=== PATIENT | male | born 1995 | race Caucasian/White ===

== ENCOUNTER 2017-04-24 02:41 | Emergency (ER) | payer OTHER, MEDICAID ==
[~2017-04-24] VITALS: Ht 180.3 cm; Wt 89.5 kg
[2017-04-24 03:25] VITALS: BP 140/80
== END 2017-04-24 04:08 | disposition left against medical advice (07) ==
LOC: M ED 04:01
DX: J02.9 Acute pharyngitis, unspecified (principal); Z53.29 Procedure and treatment not carried out because of patient's decision for other reasons

== ENCOUNTER 2017-09-22 02:12 | Emergency (ER) | payer MEDICAID, OTHER ==
[~2017-09-22] VITALS: Ht 177.8 cm; Wt 89.5 kg
[2017-09-22 02:32] VITALS: BP 147/73
[2017-09-22] MEDS ORDERED: ACETAMINOPHEN 325 MG TAB As Ordered ONE (04:13)
[2017-09-22] MEDS ORDERED: ACETAMINOPHEN 325 MG TAB PO ONE (04:15)
--- NOTE | 2017-09-22 08:15 | REP ---
Clinical: Trauma. Technique: AP, lateral, bilateral oblique views right wrist . Findings: The carpal bones, surrounding osseous structures, soft tissues, and joint spaces are normal. There is no evidence for acute fracture or dislocation. No subcutaneous emphysema or radiodense foreign body. Impression: Normal right wrist series. No acute fracture or dislocation Signed by Gilson Noonan MD 09/22/2017 08:06 A
== END 2017-09-22 04:40 | disposition home or self-care (01) ==
LOC: M ED 02:12
DX: S63.501A Unspecified sprain of right wrist, initial encounter (principal); X50.9XXA Other and unspecified overexertion or strenuous movements or postures, initial encounter; Y92.018 Other place in single-family (private) house as the place of occurrence of the external cause; Y93.83 Activity, rough housing and horseplay; Y99.8 Other external cause status; F17.210 Nicotine dependence, cigarettes, uncomplicated

== ENCOUNTER 2017-11-03 00:42 | Emergency (ER) | payer OTHER, MEDICAID ==
[2017-11-03] MEDS ORDERED: CLINDAMYCIN 150 MG CAP PO (01:30)
== END 2017-11-03 01:56 | disposition home or self-care (01) ==
LOC: M ED 00:42
DX: K05.6 Periodontal disease, unspecified (principal); F17.210 Nicotine dependence, cigarettes, uncomplicated
CPT/HCPCS: 99282

== ENCOUNTER → 2018-03-12 14:16 | Emergency (ER) | payer OTHER, MEDICAID | END | disposition home or self-care (01) | LOC: M ED 14:16 | DX: S83.91XA Sprain of unspecified site of right knee, initial encounter (principal); S80.01XA Contusion of right knee, initial encounter; V18.0XXA Pedal cycle driver injured in noncollision transport accident in nontraffic accident, initial encounter; Y92.89 Other specified places as the place of occurrence of the external cause; Z79.899 Other long term (current) drug therapy | CPT/HCPCS: 73564 ==

== ENCOUNTER 2018-04-06 12:30 | Emergency (ER) | payer OTHER, MEDICAID ==
[2018-04-06] MEDS: KETOROLAC 60 MG/2 ML VIAL (J1885) IM (13:33)
[2018-04-06] MEDS: METHOCARBAMOL 500 MG TAB PO (13:33)
== END 2018-04-06 14:01 | disposition home or self-care (01) ==
LOC: M ED 12:30
DX: M62.838 Other muscle spasm (principal); F90.9 Attention-deficit hyperactivity disorder, unspecified type; F17.200 Nicotine dependence, unspecified, uncomplicated; Z79.899 Other long term (current) drug therapy
CPT/HCPCS: J1885

== ENCOUNTER 2018-06-08 07:40 | Emergency (ER) | payer OTHER, MEDICAID ==
[2018-06-08] MEDS: AMOXICILLIN 500 MG CAP PO (08:00)
[2018-06-08] MEDS: NORCO, ANEXSIA 5/325MG TABLET (HYDROcodone/ACETAMINOPHEN) PO (08:00)
[2018-06-08] MEDS: LIDOCAINE VISCOUS 2% SOLN 15ML UDC MT (08:00)
== END 2018-06-08 08:31 | disposition home or self-care (01) ==
LOC: M ED 07:40
DX: K04.7 Periapical abscess without sinus (principal); F90.9 Attention-deficit hyperactivity disorder, unspecified type; F17.210 Nicotine dependence, cigarettes, uncomplicated
CPT/HCPCS: 99282

== ENCOUNTER 2018-07-04 12:22 | Emergency (ER) | payer OTHER | END 2018-07-04 12:50 | disposition home or self-care (01) | LOC: M ED 12:22 | DX: S02.5XXA Fracture of tooth (traumatic), initial encounter for closed fracture (principal); X58.XXXA Exposure to other specified factors, initial encounter; Y92.89 Other specified places as the place of occurrence of the external cause; K08.89 Other specified disorders of teeth and supporting structures; R51 Headache; F17.210 Nicotine dependence, cigarettes, uncomplicated | CPT/HCPCS: 99282 ==

== ENCOUNTER 2018-10-03 19:47 | Emergency (ER) | payer SELFPAY, MEDICAID, OTHER ==
[2018-10-03] MEDS: KETOROLAC 60 MG/2 ML VIAL (J1885) IM (21:15)
[2018-10-03] MEDS: NORCO, ANEXSIA 5/325MG TABLET (HYDROcodone/ACETAMINOPHEN) PO (21:15)
== END 2018-10-03 21:53 | disposition home or self-care (01) ==
LOC: M ED 19:47
DX: K08.89 Other specified disorders of teeth and supporting structures (principal); F90.9 Attention-deficit hyperactivity disorder, unspecified type; F17.210 Nicotine dependence, cigarettes, uncomplicated
CPT/HCPCS: J1885

== ENCOUNTER 2019-02-02 17:34 | Inpatient (IN) | payer MEDICAID ==
[~2019-02-02] VITALS: Ht 172.7 cm; Wt 86.0 kg
[~2019-02-02 17:34] MED LIST: ADDE10CA3 PO; ADDE1TAB14 PO; ALEV220C2 PO; AMOX875T PO; AMPH5CAP PO; BUPR15TA PO; BUSP15TA47 PO; CLEO300C2 PO; DEPA1TAB3 PO; HYDR-3363 PO; HYDR-3715 PO; IBUP-1022 PO; IBUPOTC PO; INTU1TAB PO; INTU2TAB PO; MELO7.5T7 PO; MOBI4TAB PO; NAPR-885 PO; PROZ10CA7 PO; QUET5TAB PO; REME15TA PO; ROBA500T PO; SERT25TA85 PO; TRAZO50TA PO
[2019-02-02 18:05] LABS: HEMOGLOBIN 17.8 g/dl (13.5-17.5); MEAN CORPUSCULAR HEMOGLOBIN 30.8 pg (27.0-33.0); MEAN CORPUSCULAR HGB CONC 34.9 g/dl (32.0-36.5); MEAN CORPUSCULAR VOLUME 88.2 fl (80.0-96.0); PLATELET COUNT, AUTOMATED 187 10^3/uL (150-450); RED BLOOD COUNT 5.78 10^6/uL (4.30-6.10)
[2019-02-02 18:45] LABS: ACETAMINOPHEN LEVEL < 2.0 UG/ML (10.0-30.0); ALBUMIN 4.7 GM/DL (3.2-5.2); ALT/SGPT 20 U/L (12-78); BILIRUBIN,DIRECT 0.4 MG/DL (0.0-0.2); BILIRUBIN,TOTAL 2.3 MG/DL (0.2-1.0); BLOOD UREA NITROGEN 14 MG/DL (7-18); CALCIUM LEVEL 8.9 MG/DL (8.5-10.1); CARBON DIOXIDE LEVEL 30 MEQ/L (21-32); CHLORIDE LEVEL 104 MEQ/L (98-107); ETHYL ALCOHOL (ETHANOL) < 0.003 % (0.000-0.010); GLOMERULAR FILTRATION RATE > 60.0 (>60); GLUCOSE, FASTING 77 MG/DL (70-100); POTASSIUM SERUM 4.2 MEQ/L (3.5-5.1); SALICYLATE LEVEL < 1.7 MG/DL (5.0-30.0); SODIUM LEVEL 143 MEQ/L (136-145); TOTAL PROTEIN 7.8 GM/DL (6.4-8.2); VALPROIC ACID (DEPAKOTE) 83.4 UG/ML (50.0-100.0)
[2019-02-02] MEDS ORDERED: LORazepam 2 MG TAB PO PRN (18:45)
[2019-02-02 19:12] LABS: AMPHETAMINES LEVEL URINE NEGATIVE (NEGATIVE); BARBITURATES URINE NEGATIVE (NEGATIVE); BENZODIAZEPINES URINE NEGATIVE (NEGATIVE); CANNABINOIDS URINE NEGATIVE (NEGATIVE); COCAINE METABOLITE URINE NEGATIVE (NEGATIVE); METHADONE URINE NEGATIVE (NEGATIVE); OPIATES URINE NEGATIVE (NEGATIVE); PHENCYCLIDINE URINE NEGATIVE (NEGATIVE)
[2019-02-02] MEDS: THIAMINE 100 MG TAB PO SCH (19:58)
[2019-02-02] MEDS ORDERED: IBUPROFEN 600 MG TAB PO ONE (20:15)
[2019-02-02] MEDS ORDERED: DEPA1TAB3 PO (21:17)
[2019-02-02] MEDS ORDERED: SERT25TA85 PO (21:17)
[2019-02-02] MEDS ORDERED: QUET5TAB PO (21:17)
[2019-02-02] MEDS ORDERED: TRAZO50TA PO (21:17)
[2019-02-02] MEDS ORDERED: HYDR-3363 PO (21:17)
[2019-02-02] MEDS ORDERED: VENTAER INH (21:17)
[2019-02-02] MEDS ORDERED: ADDE1TAB14 PO (21:17)
[2019-02-03] MEDS ORDERED: MAALOX 30 ML SUSP *UDC PO PRN (08:15)
[2019-02-03] MEDS ORDERED: traZODone 50 MG TAB PO PRN (08:15)
[2019-02-03] MEDS ORDERED: MOM 30ML SUSPENSION UDC PO PRN (08:15)
[2019-02-03] MEDS: FOLIC ACID 1 MG TAB PO SCH (09:28)
[2019-02-03] MEDS: THIAMINE 100 MG TAB PO SCH ×2 (09:29→21:38)
[2019-02-03] MEDS: MULTIVITAMINS/MINERALS THERAP 1 TAB PO SCH (09:29)
[2019-02-03] MEDS: NICOTINE 21MG/24HR 1 EA TRANSDERMAL TD SCH (10:31)
[2019-02-03] MEDS ORDERED: hydrOXYzine 25 MG TAB PO PRN (13:15)
--- NOTE | 2019-02-03 13:30 | MHHPEPDOC ---
[facility] History & Physical History and Physical DATE OF ADMISSION: Feb 03, 2019 at 08:08 LEGAL STATUS AT ADMISSION: 9.39 CHIEF COMPLAINT: Increasing depression and SI. Patient out of meds HISTORY OF PRESENT ILLNESS: Patient is a 23-year-old male, who according to ED report: " Pt presented to ED via his Brother stating +SI with multiple plans. Pt reported, D/C from [facility] two days ago, was not able to get 2 of his meds; Seroquel and Adderall, from pharmacy do to an Insurance issue. Pt contacted Lonnie in [facility] to assist. Pt teary, anxious, depressed. Pt stated +SI thoughts on and off throughout the day, with plan to jump out of a moving vehicle, jump off a bridge, or shoot self. Pt reported frustration and concern with outpt service, stating apt is too far out; not scheduled til end of February before he is seen. Pt cannot CFS". Psychiatric Review of Systems Depression (2 or more weeks): depressed mood, insomnia/hypersomnia (insomnia), a little bit hopeless and helpless, he feels as he doesn't fit in wherever he goes, difficulty concentrating, erratic levels of energy, appetite is erratic, levels of energy are erratic, sometimes is hard to make decisions, yesterday morning before he came to the hospital he had SI Monique (4 or more days of): denies Psychosis: " I feel a little paranoid at times" (this has been going on for a little while PTSD: hypervigilance, mood fluctuations Anxiety: situational anxiety, stressor related anxiety. Before he was admitted this time, he was feeling very anxious. He denies panic attacks, sometimes he worries too much. Anxiety/ 6 months or more of: restlessness, keyed up, difficulty concentrating, irritability, sleep disturbance Past Psychiatric History Previous Psychiatric Diagnosis: ADHD Previous Psychiatric Admissions: Recently discharged from [facility]. he could not obtain his medications Suicide Attempts: "never attempted but I've had a lot of thoughts" Psychiatric Follow-up: [facility] of Dr. Prince and Dr. Ramsey Psychiatric medications: He was discharged recently on Adderall, Seroquel, Hydroxyzine, Sertraline and Depakote Past Medical History Medical Problems denies Head Injury: No Seizures: No Hospitalizations: No Surgeries: No Family Medical/Psychiatric HX Medical Problems Mother has cancer, he doesn't know which. His aunt has diabetes, his father has PTSD Psychiatric illness: "yeah, my mother but I couldn't tell you what it is" Addiction: His mother used to sell and use a lot of drugs, his father drinks a lot. Mom is clean now Attemted/completed suicides: Mother attempted suicide, she had to be resucitated, she had overdosed Addiction History smokes cigarettes about 2 packs/day, alcohol (3 20oz beers or 12-13 12 oz beers and occasionally 1L liquor daily. bal negative on admission), other (utox positive cannabis) Social History Childhood: raised until 10 by aunts and uncles, then went in to foster care for short period, then raised by grandparents who gave him a good childhood and are his main supports. States mother in and out of fci and is now coming into his life with move to [facility] as she's dying of cancer and wants to be buried there. Reconneting with siblings. Father in as a child and "never around" Abuse/Trauma: He thinks he was not neglected by parents but he doesn't remember a lot of things. he doesn't thinkl his mother was abusive but he says his memory is really bad. Current Living Situation: lives with his brother in [place] Education: high school edu Employment: unemployed Social Support: grandparents, mother Legal: denies Marital: single, no kids Mental Status Examination Mental Status Examination General Appearance: well groomed, appears stated age, hospital scrubs/clothing Build: average Demeanor: average, other (pleasant), calm Eye Contact: avoidant Activity: average Behavior: cooperative Speech: clear, normal volume, reg/rate,rhythm,volume Mood: depressed Mood " I feel I should have stayed longer. I had SI, now they're gone but they worry me" Affect: congruent with mood, depressed Thought Process: logical/linear, intact Thought Content (Delusions): denies SI, HI, AVH Thought Content (Other): none reported, appropriate Thought Content (Aggressive): none reported Perception (Hallucinations): none reported Perception (Other): none reported Cognition (Impairment of): none reported Cognition(Intelligence Est.): average Oriented: Awake, Alert, Oriented times three Insight: fair Judgment: Fair Psychosis: Denies Diagnoses Depression Unspecified R/O adjustment d/o with depression and anxiety Hx ADHD Alcohol/cannabis use d/o Assement/Plan Assessment patient says that unfortunately he could not get his medications but he understand that he should have not pushed for being discharged so early. He feels safe here. he says yesterday and the day before, he felt very anxious because he didn't have his medications. he wa pleasant and cooperative. He is not anxious but he is depressed. he says he has not taken Strattera, it could be a possibility for him. He says that it was a problem to have his Seroquel approved. patient has been re started on his previous medications. Initial Treatment Plan 1. Patient was admitted on a 9.39 status. 2. Complete history was obtained. 3. With patients permission, family will be contacted and database will be expanded. 4. Patients medication regimen will be reviewed and changed accordingly. 5. Patient will be provided with protected environment. 6. Patient will be treated with individual, group, and milieu therapies. 7. Patient will receive supportive psych-education. 8. Discharge planning will commence immediately. 9. Outpatient follow-up treatment will be strongly recommended. 10. The initial treatment plan will focus initially on: * Depression. * Risk for suicide. * Substance abuse. 11. Adderall xr 5mg daily, depakote 500mg bid, seroquel 50mg qhs, vistaril 25mg q6hr prn anxiety ESTIMATED LENGTH OF STAY: 5-7 DAYS. TIME SPENT COUNSELING AND COORDINATING CARE: 45 minutes Vital Signs Vital Signs Date Time Temp Pulse Resp B/P (MAP) Pulse Ox O2 Delivery O2 Flow Rate FiO2 02/03/19 08:11 98.6 87 16 129/71 (90) 100 Room Air Laboratory Data 24H Labs Laboratory Tests 2 02/02/19 17:51: Nucleated Red Blood Cells % (auto) 0.0, Anion Gap 9, Glomerular Filtration Rate > 60.0, Calcium Level 8.9, Aspartate Amino Transf (AST/SGOT) 16, Alanine Aminotransferase (ALT/SGPT) 20, Alkaline Phosphatase 74, Total Bilirubin 2.3H, Direct Bilirubin 0.4H, Total Protein 7.8, Albumin 4.7, Albumin/Globulin Ratio 1.52, Thyroid Stimulating Hormone (TSH) 1.140, Salicylates Level < 1.7L, Acetaminophen Level < 2.0L, Valproic Acid (Depakene) Level 83.4, Ethyl Alcohol Level < 0.003 02/02/19 18:34: Urine Amphetamines Screen NEGATIVE, Urine Benzodiazepines Screen NEGATIVE, Urine Opiates Screen NEGATIVE, Urine Methadone Screen NEGATIVE, Urine Barbiturates Screen NEGATIVE, Urine Phencyclidine Screen NEGATIVE, Urine Cocaine Metabolite Screen NEGATIVE, Urine Cannabinoids Screen NEGATIVE CBC/BMP Laboratory Tests 02/02/19 17:51 Red Blood Count 5.78, Mean Corpuscular Volume 88.2, Mean Corpuscular Hemoglobin 30.8, Mean Corpuscular Hemoglobin Concent 34.9, Red Cell Distribution Width 11.7 Medications Scheduled (Depakote) 500 Mg Tab, 500 MG PO BID, (Reported) Amphetamine/Dextroamphetamine (Adderall 5 mg) 1 Tab Tab, 5 MG PO DAILY, (Reported) Quetiapine Fumerate (Quetiapine Fumarate) 50 Mg Tab, 50 MG PO QHS, (Reported) Sertraline Hcl (Sertraline HCl) 25 Mg Tab, 25 MG PO DAILY, (Reported) Scheduled PRN Albuterol Sulfate (Ventolin Hfa) 108 Mcg/Act Aer, 2 PUFF INH Q4H PRN for HANNAH RTNESS OF BREATH, (Reported) Hydroxyzine HCl (Hydroxyzine HCl) 25 Mg Tab, 25 MG PO Q6H PRN for ANXIETY, (Reported) Ibuprofen (Ibuprofen) 200 Mg Tab, 800 MG PO TID PRN for PAIN, (Reported) Trazodone HCl (Trazodone HCl) 50 Mg Tab, 50 MG PO QHS PRN for INSOMNIA, (Reported) Allergies Coded Allergies: No Known Allergies (Unverified , 04/24/17) YANIV BOOTHE MD Feb 03, 2019 12:50
[2019-02-03] MEDS: ADDERALL 5 MG TAB PO SCH (14:56)
[2019-02-03] MEDS: SERTRALINE HCL 25 MG TABLET PO SCH (14:56)
[2019-02-03] MEDS: DIVALPROEX 500 MG TAB PO SCH ×2 (14:57→21:38)
[2019-02-03 18:21] VITALS: BP 138/86
[2019-02-03] MEDS: QUEtiapine FUMARATE 50 MG TAB PO SCH (21:38)
[2019-02-04 06:26] VITALS: BP 123/58
[2019-02-04 07:41] LABS: BILIRUBIN,DIRECT 0.3 MG/DL (0.0-0.2); BILIRUBIN,TOTAL 1.3 MG/DL (0.2-1.0)
[2019-02-04] MEDS: MULTIVITAMINS/MINERALS THERAP 1 TAB PO SCH (08:31)
[2019-02-04] MEDS: ADDERALL 5 MG TAB PO SCH (08:31)
[2019-02-04] MEDS: FOLIC ACID 1 MG TAB PO SCH (08:31)
[2019-02-04] MEDS: DIVALPROEX 500 MG TAB PO SCH ×2 (08:31→22:31)
[2019-02-04] MEDS: NICOTINE 21MG/24HR 1 EA TRANSDERMAL TD SCH (08:31)
[2019-02-04] MEDS: THIAMINE 100 MG TAB PO SCH ×2 (08:31→22:32)
[2019-02-04] MEDS: SERTRALINE HCL 25 MG TABLET PO SCH (08:31)
--- NOTE | 2019-02-04 14:28 | MHIPNPDOC ---
[facility] Progress Note Progress Note DATE OF SERVICE: 02/04/19 HISTORY: CHIEF COMPLAINT: Increasing depression and SI. Patient out of meds HISTORY OF PRESENT ILLNESS: Patient is a 23-year-old male, who according to ED report: " Pt presented to ED via his Brother stating +SI with multiple plans. Pt reported, D/C from [facility] two days ago, was not able to get 2 of his meds; Seroquel and Adderall, from pharmacy do to an Insurance issue. Pt contacted Lonnie in [facility] to assist. Pt teary, anxious, depressed. Pt stated +SI thoughts on and off throughout the day, with plan to jump out of a moving vehicle, jump off a bridge, or shoot self. Pt reported frustration and concern with outpt service, stating apt is too far out; not scheduled til end of February before he is seen. Pt cannot CFS". VITAL SIGNS: See below. NEW TEST RESULTS: See new labs CURRENT MEDICATIONS: See below. MENTAL STATUS EXAMINATION: Patient is a 23-year old male, who is alert, cooperative, personal/hospital clothes, good grooming, good hygiene. Speech: Is fluent, spontaneous, normal in rate, rhythm, tone and volume Language skills are good. Thought processes including: intact. Thought content: anxious, angry thought about been awakened this morning by a staf member after being awakened for v/s. Abstract reasoning, and computation: good. Description of associations: good Description of abnormal or psychotic thoughts: he feels depressed, a 9/10, denies homicidal ideation, denies suicidal ideation since he came back to [facility], he is hypervigilant ( he says he has been like this since he went to school for Criminal Justice), denies Av hallucinations . Judgment: limited Insight: fair. Orientation: x 3. Recent and remote memory: good. Attention span and concentration: good. Language: average. Fund of knowledge: average. Mood: depressed. Affect: constricted, congruent with mood . DIAGNOSES: Depression Unspecified R/O adjustment d/o with depression and anxiety Hx ADHD Alcohol/cannabis use d/o ASSESSMENT: Patient is more depressed than yesterday, increased Zoloft to 50 mgs. and ordered a one time dose of 25 mgs to supplement the other 25 mgs of Zoloft that he received this morning. 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 Ever since he has heard noises like doors closing and opening, but not since he has been at our Unit. MANAGEMENT PLAN: increase Zoloft to 50 mgs QAM Give a one time dose of 25 mgs to supplement his morning dose for 25 mgs and make it 50 mgs. TIME SPENT: 20 minutes. Vital Signs Vital Signs Date Time Temp Pulse Resp B/P (MAP) Pulse Ox O2 Delivery O2 Flow Rate FiO2 02/04/19 06:26 98.0 71 12 123/58 (79) 02/03/19 08:11 100 Room Air Laboratory Data 24H Labs Laboratory Tests 2 02/04/19 06:39: Aspartate Amino Transf (AST/SGOT) 12, Alanine Aminotransferase (ALT/SGPT) 17, Alkaline Phosphatase 61, Total Bilirubin 1.3H, Direct Bilirubin 0.3H, Total Protein 7.0, Albumin 4.0, Albumin/Globulin Ratio 1.33 Current Medications Current Medications Acetaminophen (Tylenol Tab) 650 mg Q6HP PRN PO HEADACHE or DISCOMFORT; Start 02/03/19 at 08:15 Al Hydrox/Mg Hydrox/Simethicone (Mylanta) 30 ml Q4HP PRN PO HEARTBURN/INDIGESTION; Start 02/03/19 at 08:15 Amphetamine/ Dextroamphetamine (Adderall) 5 mg QAM PO Last administered on 02/04/19at 08:31; Start 02/03/19 at 09:00 Divalproex Sodium (Depakote) 500 mg BID PO Last administered on 02/04/19at 08:31; Start 02/03/19 at 09:00 Folic Acid (Folic Acid) 1 mg DAILY PO Last administered on 02/04/19at 08:31; Start 02/03/19 at 09:00 Home Med (Med Rec Complete!) ASDIRECTED XX ; Start 02/02/19 at 21:30; Stop 02/02/19 at 21:30; Status DC Hydroxyzine HCl (Atarax) 25 mg Q6HP PRN PO ANXIETY; Start 02/03/19 at 13:15 Lorazepam (Ativan) 2 mg ASDIRECTED PRN PO SEE PROTOCOL; Start 02/02/19 at 18:45 Magnesium Hydroxide (Milk Of Magnesia) 30 ml DAILYPRN PRN PO CONSTIPATION; Start 02/03/19 at 08:15 Multivitamins (Theragram-M) 1 tab DAILY PO Last administered on 02/04/19at 0 8:31; Start 02/03/19 at 09:00 Nicotine (Nicoderm Cq 21mg) 1 patch DAILY TD Last administered on 02/04/19at 08:31; Start 02/03/19 at 09:00 Quetiapine Fumarate (SEROquel) 50 mg QHS PO Last administered on 02/03/19at 21:38; Start 02/03/19 at 21:00 Sertraline HCl (Zoloft) 25 mg QAM PO Last administered on 02/04/19 08:31; Start 02/03/19 at 09:00 Thiamine HCl (Thiamine HCl) 100 mg BID PO Last administered on 02/04/19at 08:31; Start 02/02/19 at 21:00; Stop 02/05/19 at 20:59 Trazodone HCl (Desyrel) 50 mg QHSP PRN PO INSOMNIA; Start 02/03/19 at 08:15 Allergies Coded Allergies: No Known Allergies (Unverified , 04/24/17) YANIV BOOTHE MD Feb 04, 2019 14:22
[2019-02-04] MEDS ORDERED: SERTRALINE HCL 25 MG TABLET PO ONE (15:00)
[2019-02-04 18:09] VITALS: BP 140/73
[2019-02-04] MEDS ORDERED: traZODone 50 MG TAB PO SCH (21:00)
[2019-02-04] MEDS: QUEtiapine FUMARATE 50 MG TAB PO SCH (22:31)
[2019-02-05] MEDS: ACETAMINOPHEN TAB 650MG DOSE (2X325MG) PO PRN (06:26)
[2019-02-05 06:45] VITALS: BP 122/63
[2019-02-05] MEDS: DIVALPROEX 500 MG TAB PO SCH ×2 (08:14→21:25)
[2019-02-05] MEDS: ADDERALL 5 MG TAB PO SCH (08:14)
[2019-02-05] MEDS: MULTIVITAMINS/MINERALS THERAP 1 TAB PO SCH (08:14)
[2019-02-05] MEDS: THIAMINE 100 MG TAB PO SCH (08:14)
[2019-02-05] MEDS: SERTRALINE HCL 50 MG TAB PO SCH (08:14)
[2019-02-05] MEDS: NICOTINE 21MG/24HR 1 EA TRANSDERMAL TD SCH (08:14)
[2019-02-05] MEDS: FOLIC ACID 1 MG TAB PO SCH (08:14)
--- NOTE | 2019-02-05 11:24 | MHIPNPDOC ---
[facility] Progress Note Progress Note DATE OF SERVICE: 02/05/19 HISTORY: Patient is a 23-year-old male, who according to ED report: " Pt presented to ED via his Brother stating +SI with multiple plans. Pt reported, D/C from [facility] two days ago, was not able to get 2 of his meds; Seroquel and Adderall, from pharmacy do to an Insurance issue. Pt contacted Lonnie in [facility] to assist. Pt teary, anxious, depressed. Pt stated +SI thoughts on and off throughout the day, with plan to jump out of a moving vehicle, jump off a bridge, or shoot self. Pt reported frustration and concern with outpt service, stating apt is too far out; not scheduled til end of February before he is seen. Pt cannot CFS". VITAL SIGNS: See below. NEW TEST RESULTS: depakote level 83.4 therapeutic CURRENT MEDICATIONS: See below. MENTAL STATUS EXAMINATION: Patient is a 23-year old male, who is alert, cooperative, personal/hospital clothes, good grooming, good hygiene. Speech: Is fluent, spontaneous, normal in rate, rhythm, tone and volume Language skills are good. Thought processes including: intact, linear, logical, slightly concrete Thought content: depressive thoughts Abstract reasoning, and computation: good. Description of associations: good Description of abnormal or psychotic thoughts: he feels depressed, a 9/10, denies homicidal ideation, denies suicidal ideation since he came back to [facility], he is hypervigilant ( he says he has been like this since he went to school for Criminal Justice), denies Av hallucinations . Judgment: limited Insight: fair. Orientation: x 3. Recent and remote memory: good. Attention span and concentration: good. Language: average. Fund of knowledge: average. Mood: depressed. Affect: constricted, flat, congruent with mood. DIAGNOSES: Depression Unspecified R/O adjustment d/o with depression and anxiety Hx ADHD Alcohol/cannabis use d/o ASSESSMENT: :Pt seen and states that his mood is still "down." Spoke with pt about his insurance not willing to approve his seroquel or adderall so will need to d/c and work with alternative meds to benefit symptoms. Endorses poor motivation today especially to attend groups. Encouraged pt to attend groups and socialize in the milieu to aid with improving his depression. Continues to endorse anxiety and agreeable to increasing atarax to aid it. Will increase trazodone for sleep as pt unable to take seroquel due to insurance and current dose not beneficial. He appears depressed, flat, anxious, and is withdrawn today. Feels he is tolerating his medications and are somewhat beneficial. He denies SI/HI, hallucinations, delusions. Pt feels safe here. MANAGEMENT PLAN: d/c adderall and seroquel as can't get outpatient dosing approved even with prior authorization medications: Depakote 500 mg BID Atarax 50mg Q6HP PRN PO ANXIETY Ativan 2mg ASDIRECTED PRN PO SEE PROTOCOL Zoloft 50mg QAM Trazodone 100mg QHS prn insomnia TIME SPENT: 20 minutes. Vital Signs Vital Signs Date Time Temp Pulse Resp B/P (MAP) Pulse Ox O2 Delivery O2 Flow Rate FiO2 02/05/19 06:45 97.5 75 14 122/63 (82) 02/03/19 08:11 100 Room Air Current Medications Current Medications Acetaminophen (Tylenol Tab) 650 mg Q6HP PRN PO HEADACHE or DISCOMFORT Last administered on 02/05/19at 06:26; Start 02/03/19 at 08:15 Al Hydrox/Mg Hydrox/Simethicone (Mylanta) 30 ml Q4HP PRN PO HEARTBURN/INDIGESTION; Start 02/03/19 at 08:15 Amphetamine/ Dextroamphetamine (Adderall) 5 mg QAM PO Last administered on 02/05/19at 08:14; Start 02/03/19 at 09:00 Divalproex Sodium (Depakote) 500 mg BID PO Last administered on 02/05/19at 08:14; Start 02/03/19 at 09:00 Folic Acid (Folic Acid) 1 mg DAILY PO Last administered on 02/05/19at 08:14; Start 02/03/19 at 09:00 Home Med (Med Rec Complete!) ASDIRECTED XX ; Start 02/02/19 at 21:30; Stop 02/02/19 at 21:30; Status DC Hydroxyzine HCl (Atarax) 25 mg Q6HP PRN PO ANXIETY Last administered on 02/04/19at 14:33; Start 02/03/19 at 13:15 Lorazepam (Ativan) 2 mg ASDIRECTED PRN PO SEE PROTOCOL; Start 02/02/19 at 18:45 Magnesium Hydroxide (Milk Of Magnesia) 30 ml DAILYPRN PRN PO CONSTIPATION; Start 02/03/19 at 08:15 Multivitamins (Theragram-M) 1 tab DAILY PO Last administered on 02/05/19at 08:14; Start 02/03/19 at 09:00 Nicotine (Nicoderm Cq 21mg) 1 patch DAILY TD Last administered on 02/05/19at 08:14; Start 02/03/19 at 09:00 Quetiapine Fumarate (SEROquel) 50 mg QHS PO Last administered on 02/04/19at 22:31; Start 02/03/19 at 21:00 Sertraline HCl (Zoloft) 25 mg QAM PO Last administered on 02/04/19at 08:31; Start 02/03/19 at 09:00; Stop 02/04/19 at 14:14; Status DC Sertraline HCl (Zoloft) 50 mg QAM PO Last administered on 02/05/19at 08:14; Start 02/05/19 at 09:00 Thiamine HCl (Thiamine HCl) 100 mg BID PO Last administered on 02/05/19at 08:14; Start 02/02/19 at 21:00; Stop 02/05/19 at 20:59 Trazodone HCl (Desyrel) 50 mg QHS PO Last administered on 02/04/19at 22:31; Start 02/04/19 at 21:00 Trazodone HCl (Desyrel) 50 mg QHSP PRN PO INSOMNIA; Start 02/03/19 at 08:15; Stop 02/04/19 at 14:14; Status DC Allergies Coded Allergies: No Known Allergies (Unverified , 04/24/17) JEANE ECHEVERRIA DO Feb 05, 2019 11:24 am
[2019-02-05 18:00] VITALS: BP 138/88
[2019-02-05] MEDS: traZODone 100 MG TAB PO PRN (23:08)
[2019-02-06 06:29] VITALS: BP 139/71
--- NOTE | 2019-02-06 08:00 | HPE ---
DATE OF ADMISSION: 02/03/2019 HISTORY OF PRESENT ILLNESS: Please refer to psychiatric history and evaluation for further details on this admission. This examination and history is intended for medical issues, which may need treatment, followup or consultation on this 23-year-old male who was recently discharged from inpatient mental health unit, 01/31/2019. ALLERGIES: SOCIAL HISTORY: Prior to the admission in which he was discharged 01/31/2019, he was drinking up to 30 drinks per day for 2 to 3 weeks. He states that he was discharged on 01/31/2019 and he drank only a half of a can of beer between then and readmission. IV drug use is none. Recreational drug use is marijuana. FAMILY HISTORY: Mother is alive with a history of cancer. Father's medical history is unknown. REVIEW OF SYSTEMS: Ten systems review was done and is unremarkable. MEDICATIONS: - Adderall 5 by mouth daily - ibuprofen 800 mg by mouth three times a day as needed for pain - Seroquel 50 mg by mouth at night - sertraline 25 mg by mouth daily - trazodone 50 mg by mouth at night as needed for insomnia - Ventolin HFA two puffs every four hours as needed for shortness of breath - Depakote 500 mg by mouth twice a day - hydroxyzine 25 mg by mouth every 6 hours as needed for anxiety LABORATORY STUDIES: White count is 7.0, hemoglobin 17.8, hematocrit 51.0, platelets are 187, electrolytes are normal, BUN 14, creatinine 1.0, total bilirubin was elevated at 2.3, direct bilirubin was 0.4, same elevation as previously on the admission before the . Electrocardiogram (EKG) showed sinus rhythm at 78. Valproic acid level was 83.4. PAST MEDICAL HISTORY: 1. Anxiety. 2. Depression. 3. History of suicidal ideation. PAST SURGICAL HISTORY: 1. Orthopedic surgery of the left hand. PHYSICAL EXAMINATION: GENERAL: 23-year-old cooperative male in no acute distress. Blood pressure 129/71, pulse 87, respirations 16, temperature 98.6, oxygen saturation 100% on room air. The patient is alert and oriented. HEENT: Pupils are equal and reactive to light. Extraocular muscles intact. Sclerae clear. Conjunctivae normal. No facial asymmetry. Pharynx, gums and tongue pink and moist. Tongue is midline. NECK: Supple without lymphadenopathy, thyromegaly or goiter. Carotids are 2+ without bruit. CHEST: Clear to auscultation without wheeze or retraction. HEART: Regular. ABDOMEN: Benign. Bowel sounds positive. GENITOURINARY/RECTAL: Not done. EXTREMITIES: Equal strength, full range of motion. No clubbing, cyanosis, and edema. Peripheral pulses equal and palpable bilaterally. SKIN: Warm and dry. NEUROLOGIC: Cranial nerves III-XII grossly intact. IMPRESSION/PLAN: 1. Psychiatric plan per psychiatry. 2. Get a liver panel in the morning. 3. Monitor for withdrawal from alcohol.
[2019-02-06 08:06] LABS: ALBUMIN 4.3 GM/DL (3.2-5.2); ALT/SGPT 17 U/L (12-78); BILIRUBIN,TOTAL 1.3 MG/DL (0.2-1.0); BLOOD UREA NITROGEN 12 MG/DL (7-18); CARBON DIOXIDE LEVEL 32 MEQ/L (21-32); CHLORIDE LEVEL 105 MEQ/L (98-107); CREATININE FOR GFR 0.97 MG/DL (0.70-1.30); GLOMERULAR FILTRATION RATE > 60.0 (>60); GLUCOSE, FASTING 79 MG/DL (70-100); POTASSIUM SERUM 4.4 MEQ/L (3.5-5.1); SODIUM LEVEL 141 MEQ/L (136-145); TOTAL PROTEIN 7.4 GM/DL (6.4-8.2)
[2019-02-06] MEDS: NICOTINE 21MG/24HR 1 EA TRANSDERMAL TD SCH (08:08)
[2019-02-06] MEDS: DIVALPROEX 500 MG TAB PO SCH ×2 (08:09→21:11)
[2019-02-06] MEDS: FOLIC ACID 1 MG TAB PO SCH (08:09)
[2019-02-06] MEDS: SERTRALINE HCL 50 MG TAB PO SCH (08:09)
[2019-02-06] MEDS: MULTIVITAMINS/MINERALS THERAP 1 TAB PO SCH (08:09)
--- NOTE | 2019-02-06 10:04 | MHIPNPDOC ---
[facility] Progress Note Progress Note DATE OF SERVICE: 02/06/19 HISTORY: Patient is a 23-year-old male, who according to ED report: " Pt presented to ED via his Brother stating +SI with multiple plans. Pt reported, D/C from [facility] two days ago, was not able to get 2 of his meds; Seroquel and Adderall, from pharmacy do to an Insurance issue. Pt contacted Lonnie in [facility] to assist. Pt teary, anxious, depressed. Pt stated +SI thoughts on and off throughout the day, with plan to jump out of a moving vehicle, jump off a bridge, or shoot self. Pt reported frustration and concern with outpt service, stating apt is too far out; not scheduled til end of February before he is seen. Pt cannot CFS". VITAL SIGNS: See below. NEW TEST RESULTS: depakote level 83.4 therapeutic CURRENT MEDICATIONS: See below. MENTAL STATUS EXAMINATION: Patient is a 23-year old male, who is alert, cooperative, personal/hospital clothes, good grooming, good hygiene. Speech: Is fluent, spontaneous, normal in rate, rhythm, tone and volume Language skills are good. Thought processes including: intact, linear, logical, slightly concrete Thought content: depressive thoughts Abstract reasoning, and computation: good. Description of associations: good Description of abnormal or psychotic thoughts: he feels less depressed, a 9/10, denies homicidal ideation, denies suicidal ideation since he came back to [facility], he is hypervigilant ( he says he has been like this since he went to school for Criminal Justice), denies Av hallucinations . Judgment: limited Insight: fair. Orientation: x 3. Recent and remote memory: good. Attention span and concentration: fair, still endorse some difficulty mainta ining Language: average. Fund of knowledge: average. Mood: less depressed. Affect: less constricted and flat, congruent with mood. DIAGNOSES: Depression Unspecified R/O adjustment d/o with depression and anxiety Hx ADHD Alcohol/cannabis use d/o ASSESSMENT: :Pt seen and states that his mood is better and he feels less anxious. States meds are beneficial and he's tolerating them well. Continues to endorse episodes or anxiety and irritation due to situational circumstances (other pt's on unit). Is coping by walking the halls and socializing with a peer. States he still has difficulty with his attention and concentration but it is improved slightly. Is attending groups and socializing in the milieu which he's finding beneficial for his mood and anxiety. States he slept well with increase in trazodone last night. He appears less depressed, flat, anxious, and withdrawn today. He denies SI/HI, hallucinations, delusions. Pt feels safe here. MANAGEMENT PLAN: continue plan medications: Depakote 500 mg BID Atarax 50mg Q6HP PRN PO ANXIETY Ativan 2mg ASDIRECTED PRN PO SEE PROTOCOL Zoloft 50mg QAM Trazodone 100mg QHS prn insomnia TIME SPENT: 20 minutes. Vital Signs Vital Signs Date Time Temp Pulse Resp B/P (MAP) Pulse Ox O2 Delivery O2 Flow Rate FiO2 02/06/19 06:29 98.3 54 12 139/71 (93) 02/03/19 08:11 100 Room Air Laboratory Data 24H Labs Laboratory Tests 2 02/06/19 07:26: Anion Gap 4L, Glomerular Filtration Rate > 60.0, Blood Urea Nitrogen 12, Creatinine 0.97, Sodium Level 141, Potassium Level 4.4, Chloride Level 105, Carbon Dioxide Level 32, Calcium Level 9.0, Aspartate Amino Transf (AST/SGOT) 8, Alanine Aminotransferase (ALT/SGPT) 17, Alkaline Phosphatase 64, Total Bilirubin 1.3H, Total Protein 7.4, Albumin 4.3, Albumin/Globulin Ratio 1.39 CBC/BMP Laboratory Tests 02/06/19 07:26 Calcium Level 9.0, Aspartate Amino Transf (AST/SGOT) 8, Alanine Aminotransferase (ALT/SGPT) 17, Alkaline Phosphatase 64, Total Bilirubin 1.3 H, Total Protein 7.4, Albumin 4.3 Current Medications Current Medications Acetaminophen (Tylenol Tab) 650 mg Q6HP PRN PO HEADACHE or DISCOMFORT Last administered on 02/05/19at 06:26; Start 02/03/19 at 08:15 Al Hydrox/Mg Hydrox/Simethicone (Mylanta) 30 ml Q4HP PRN PO HEARTBURN/INDIGESTION; Start 02/03/19 at 08:15 Amphetamine/ Dextroamphetamine (Adderall) 5 mg QAM PO Last administered on 02/05/19at 08:14; Start 02/03/19 at 09:00; Stop 02/05/19 at 11:12; Status DC Divalproex Sodium (Depakote) 500 mg BID PO Last administered on 02/06/19 08:09; Start 02/03/19 at 09:00 Folic Acid (Folic Acid) 1 mg DAILY PO Last administered on 02/06/19 08:09; Start 02/03/19 at 09:00 Home Med (Med Rec Complete!) ASDIRECTED XX ; Start 02/02/19 at 21:30; Stop 02/02/19 at 21:30; Status DC Hydroxyzine HCl (Atarax) 25 mg Q6HP PRN PO ANXIETY Last administered on 02/04/19at 14:33; Start 02/03/19 at 13:15; Stop 02/05/19 at 11:26; Status DC Hydroxyzine HCl (Atarax) 50 mg Q6HP PRN PO ANXIETY/AGITATION; Start 02/05/19 at 11:30 Lorazepam (Ativan) 2 mg ASDIRECTED PRN PO SEE PROTOCOL; Start 02/02/19 at 18:45 Magnesium Hydroxide (Milk Of Magnesia) 30 ml DAILYPRN PRN PO CONSTIPATION; Start 02/03/19 at 08:15 Multivitamins (Theragram-M) 1 tab DAILY PO Last administered on 02/06/19 08:09; Start 02/03/19 at 09:00 Nicotine (Nicoderm Cq 21mg) 1 patch DAILY TD Last administered on 02/06/19 08:08; Start 02/03/19 at 09:00 Quetiapine Fumarate (SEROquel) 50 mg QHS PO Last administered on 02/04/19at 22:31; Start 02/03/19 at 21:00; Stop 02/05/19 at 11:12; Status DC Sertraline HCl (Zoloft) 25 mg QAM PO Last administered on 02/04/19 08:31; Start 02/03/19 at 09:00; Stop 02/04/19 at 14:14; Status DC Sertraline HCl (Zoloft) 50 mg QAM PO Last administered on 02/06/19 08:09; Start 02/05/19 at 09:00 Thiamine HCl (Thiamine HCl) 100 mg BID PO Last administered on 02/05/19at 08:14; Start 02/02/19 at 21:00; Stop 02/05/19 at 20:59; Status DC Trazodone HCl (Desyrel) 50 mg QHS PO Last administered on 02/04/19at 22:31; Start 02/04/19 at 21:00; Stop 02/05/19 at 11:26; Status DC Trazodone HCl (Desyrel) 50 mg QHSP PRN PO INSOMNIA; Start 02/03/19 at 08:15; Stop 02/04/19 at 14:14; Status DC Trazodone HCl (Desyrel) 100 mg QHSP PRN PO INSOMNIA Last administered on 02/05/19at 23:08; Start 02/05/19 at 11:30 Allergies Coded Allergies: No Known Allergies (Unverified , 04/24/17) JEANE ECHEVERRIA DO Feb 06, 2019 10:04 am
[2019-02-06 18:00] VITALS: BP 134/80
[2019-02-06] MEDS: traZODone 100 MG TAB PO PRN (23:03)
[2019-02-07 06:28] VITALS: BP 134/68
[2019-02-07] MEDS: SERTRALINE HCL 50 MG TAB PO SCH (08:06)
[2019-02-07] MEDS: DIVALPROEX 500 MG TAB PO SCH ×2 (08:06→20:36)
[2019-02-07] MEDS: MULTIVITAMINS/MINERALS THERAP 1 TAB PO SCH (08:06)
[2019-02-07] MEDS: NICOTINE 21MG/24HR 1 EA TRANSDERMAL TD SCH (08:06)
[2019-02-07] MEDS: FOLIC ACID 1 MG TAB PO SCH (08:06)
--- NOTE | 2019-02-07 09:52 | MHIPNPDOC ---
[facility] Progress Note Progress Note DATE OF SERVICE: 02/07/19 HISTORY: Patient is a 23-year-old male, who according to ED report: " Pt presented to ED via his Brother stating +SI with multiple plans. Pt reported, D/C from [facility] two days ago, was not able to get 2 of his meds; Seroquel and Adderall, from pharmacy do to an Insurance issue. Pt contacted Lonnie in [facility] to assist. Pt teary, anxious, depressed. Pt stated +SI thoughts on and off throughout the day, with plan to jump out of a moving vehicle, jump off a bridge, or shoot self. Pt reported frustration and concern with outpt service, stating apt is too far out; not scheduled til end of February before he is seen. Pt cannot CFS". VITAL SIGNS: See below. NEW TEST RESULTS: depakote level 83.4 therapeutic CURRENT MEDICATIONS: See below. MENTAL STATUS EXAMINATION: Patient is a 23-year old male, who is alert, cooperative, personal/hospital clothes, good grooming, good hygiene. Speech: Is fluent, spontaneous, normal in rate, rhythm, tone and volume Language skills are good. Thought processes including: intact, linear, logical, slightly concrete Thought content: depressive thoughts Abstract reasoning, and computation: good. Description of associations: good Description of abnormal or psychotic thoughts: he feels less depressed, denies SI/HI, denies Av hallucinations. endorses hypervigilance on unit that appears to be improving. Judgment: limited Insight: fair. Orientation: x 3. Recent and remote memory: good. Attention span and concentration: fair, still endorse some difficulty maintaining Language: average. Fund of knowledge: average. Mood: less depressed. Affect: less constricted and flat, congruent with mood. DIAGNOSES: Depression Unspecified R/O adjustment d/o with depression and anxiety Hx ADHD Alcohol/cannabis use d/o ASSESSMENT: :Pt seen and states that his mood is better and he feels less anxious. States meds are beneficial and he's tolerating them well. Continues to endorse episodes irritation ("someone came in my room last night and used the bathroom which irritated me") due to situational circumstances (other pt's on unit) and mother and brother attempting to manipulate pt to do what they want rather than what's best for him. Is coping by walking the halls and socializing with a peer, continuing to speak with his grandmother who is very supportive of him. States his attention and concentration are improving with current meds. Is attending groups and socializing in the milieu which he's finding beneficial for his mood and anxiety. States he slept well with increase in trazodone last night. He appears less depressed, flat, anxious, and withdrawn today. He denies SI/HI, hallucinations, delusions. Pt feels safe here. MANAGEMENT PLAN: continue plan medications: Depakote 500 mg BID Atarax 50mg Q6HP PRN PO ANXIETY Zoloft 50mg QAM Trazodone 100mg QHS prn insomnia TIME SPENT: 20 minutes. Vital Signs Vital Signs Date Time Temp Pulse Resp B/P (MAP) Pulse Ox O2 Delivery O2 Flow Rate FiO2 02/07/19 06:28 97.7 63 14 134/68 (90) 02/03/19 08:11 100 Room Air Current Medications Current Medications Acetaminophen (Tylenol Tab) 650 mg Q6HP PRN PO HEADACHE or DISCOMFORT Last administered on 02/05/19at 06:26; Start 02/03/19 at 08:15 Al Hydrox/Mg Hydrox/Simethicone (Mylanta) 30 ml Q4HP PRN PO HEARTBURN/INDIGESTION; Start 02/03/19 at 08:15 Amphetamine/ Dextroamphetamine (Adderall) 5 mg QAM PO Last administered on 02/05/19at 08:14; Start 02/03/19 at 09:00; Stop 02/05/19 at 11:12; Status DC Divalproex Sodium (Depakote) 500 mg BID PO Last administered on 02/07/19at 08:06; Start 02/03/19 at 09:00 Folic Acid (Folic Acid) 1 mg DAILY PO Last administered on 02/07/19at 08:06; Start 02/03/19 at 09:00 Home Med (Med Rec Complete!) ASDIRECTED XX ; Start 02/02/19 at 21:30; Stop 02/02/19 at 21:30; Status DC Hydroxyzine HCl (Atarax) 25 mg Q6HP PRN PO ANXIETY Last administered on 02/04/19at 14:33; Start 02/03/19 at 13:15; Stop 02/05/19 at 11:26; Status DC Hydroxyzine HCl (Atarax) 50 mg Q6HP PRN PO ANXIETY/AGITATION; Start 02/05/19 at 11:30 Lorazepam (Ativan) 2 mg ASDIRECTED PRN PO SEE PROTOCOL; Start 02/02/19 at 18:45 Magnesium Hydroxide (Milk Of Magnesia) 30 ml DAILYPRN PRN PO CONSTIPATION; Start 02/03/19 at 08:15 Multivitamins (Theragram-M) 1 tab DAILY PO Last administered on 02/07/19 08:06; Start 02/03/19 at 09:00 Nicotine (Nicoderm Cq 21mg) 1 patch DAILY TD Last administered on 02/07/19 08:06; Start 02/03/19 at 09:00 Quetiapine Fumarate (SEROquel) 50 mg QHS PO Last administered on 02/04/19 22:31; Start 02/03/19 at 21:00; Stop 02/05/19 at 11:12; Status DC Sertraline HCl (Zoloft) 25 mg QAM PO Last administered on 02/04/19 08:31; Start 02/03/19 at 09:00; Stop 02/04/19 at 14:14; Status DC Sertraline HCl (Zoloft) 50 mg QAM PO Last administered on 02/07/19 08:06; Start 02/05/19 at 09:00 Thiamine HCl (Thiamine HCl) 100 mg BID PO Last administered on 02/05/19at 08:14; Start 02/02/19 at 21:00; Stop 02/05/19 at 20:59; Status DC Trazodone HCl (Desyrel) 50 mg QHS PO Last administered on 02/04/19 22:31; Start 02/04/19 at 21:00; Stop 02/05/19 at 11:26; Status DC Trazodone HCl (Desyrel) 50 mg QHSP PRN PO INSOMNIA; Start 02/03/19 at 08:15; Stop 02/04/19 at 14:14; Status DC Trazodone HCl (Desyrel) 100 mg QHSP PRN PO INSOMNIA Last administered on 02/06/19 23:03; Start 02/05/19 at 11:30 Allergies Coded Allergies: No Known Allergies (Unverified , 04/24/17) JEANE ECHEVERRIA DO Feb 07, 2019 9:52 am
[2019-02-07] MEDS: ACETAMINOPHEN TAB 650MG DOSE (2X325MG) PO PRN (13:18)
[2019-02-07 18:00] VITALS: BP 130/80
[2019-02-07] MEDS: traZODone 100 MG TAB PO PRN (22:20)
[2019-02-08 06:41] VITALS: BP 137/77
[2019-02-08] MEDS: SERTRALINE HCL 50 MG TAB PO SCH (08:12)
[2019-02-08] MEDS: DIVALPROEX 500 MG TAB PO SCH ×2 (08:13→21:30)
[2019-02-08] MEDS: hydrOXYzine 50 MG TAB PO PRN (08:36)
[2019-02-08] MEDS: NICOTINE 21MG/24HR 1 EA TRANSDERMAL TD SCH (08:36)
--- NOTE | 2019-02-08 08:42 | MHIPNPDOC ---
[facility] Progress Note Progress Note DATE OF SERVICE: 02/08/19 HISTORY: Patient is a 23-year-old male, who according to ED report: " Pt presented to ED via his Brother stating +SI with multiple plans. Pt reported, D/C from [facility] two days ago, was not able to get 2 of his meds; Seroquel and Adderall, from pharmacy do to an Insurance issue. Pt contacted Lonnie in [facility] to assist. Pt teary, anxious, depressed. Pt stated +SI thoughts on and off throughout the day, with plan to jump out of a moving vehicle, jump off a bridge, or shoot self. Pt reported frustration and concern with outpt service, stating apt is too far out; not scheduled til end of February before he is seen. Pt cannot CFS". VITAL SIGNS: See below. NEW TEST RESULTS: depakote level 83.4 therapeutic CURRENT MEDICATIONS: See below. MENTAL STATUS EXAMINATION: Patient is a 23-year old male, who is alert, cooperative, personal/hospital clothes, good grooming, good hygiene. Speech: Is fluent, spontaneous, normal in rate, rhythm, tone and volume Language skills are good. Thought processes including: intact, linear, logical, slightly concrete Thought content: depressive thoughts Abstract reasoning, and computation: good. Description of associations: good Description of abnormal or psychotic thoughts: he feels less depressed, denies SI/HI, denies Av hallucinations. endorses hypervigilance on unit that appears to be improving. Judgment: limited Insight: fair. Orientation: x 3. Recent and remote memory: good. Attention span and concentration: fair, still endorse some difficulty maintaining Language: average. Fund of knowledge: average. Mood: anxious, agitated. Affect: anxious, agitated DIAGNOSES: Depression Unspecified R/O adjustment d/o with depression and anxiety Hx ADHD Alcohol/cannabis use d/o ASSESSMENT: :Pt seen in milieu yelling and grunting "Ah... you're kicking me out... I'm not ready to go." Calmed pt down thru support and told him he was not be discharged today. Pt stopped yelling and grunting in milieu and went with nurse to further calm down. Up until this morning pt had been doing well attending to groups, socializing with peers on unit and reported he felt better and his meds were beneficial. Pt has multiple stressors from his mother and brother that are pressuring him to do things that aren't in his best interest and are more serving to there needs which appears to be distressing pt as doesn't want to upset them but knows it is not best for him. This most likely led to panic this morning over not wanting to have to deal with them pressuring him, making him feel guilty. Will keep pt and work with his plan for d/c with his supportive grandmother and limit/stop contact with his mother and brother. He denies SI/HI, hallucinations, delusions. Pt feels safe here. MANAGEMENT PLAN: continue plan medications: Depakote 500 mg BID Atarax 50mg Q6HP PRN PO ANXIETY Zoloft 50mg QAM Trazodone 100mg QHS prn insomnia TIME SPENT: 20 minutes. Vital Signs Vital Signs Date Time Temp Pulse Resp B/P (MAP) Pulse Ox O2 Delivery O2 Flow Rate FiO2 02/08/19 06:41 97.0 79 14 137/77 (97) 02/03/19 08:11 100 Room Air Current Medications Current Medications Acetaminophen (Tylenol Tab) 650 mg Q6HP PRN PO HEADACHE or DISCOMFORT Last administered on 02/07/19at 13:18; Start 02/03/19 at 08:15 Al Hydrox/Mg Hydrox/Simethicone (Mylanta) 30 ml Q4HP PRN PO HEARTBURN/INDIGESTION; Start 02/03/19 at 08:15 Amphetamine/ Dextroamphetamine (Adderall) 5 mg QAM PO Last administered on 02/05/19at 08:14; Start 02/03/19 at 09:00; Stop 02/05/19 at 11:12; Status DC Divalproex Sodium (Depakote) 500 mg BID PO Last administered on 02/08/19at 08:13; Start 02/03/19 at 09:00 Folic Acid (Folic Acid) 1 mg DAILY PO Last administered on 02/07/19at 08:06; Start 02/03/19 at 09:00; Stop 02/07/19 at 09:53; Status DC Home Med (Med Rec Complete!) ASDIRECTED XX ; Start 02/02/19 at 21:30; Stop 02/02/19 at 21:30; Status DC Hydroxyzine HCl (Atarax) 25 mg Q6HP PRN PO ANXIETY Last administered on 02/04/19at 14:33; Start 02/03/19 at 13:15; Stop 02/05/19 at 11:26; Status DC Hydroxyzine HCl (Atarax) 50 mg Q6HP PRN PO ANXIETY/AGITATION; Start 02/05/19 at 11:30 Lorazepam (Ativan) 2 mg ASDIRECTED PRN PO SEE PROTOCOL; Start 02/02/19 at 18:45; Status Cancel Magnesium Hydroxide (Milk Of Magnesia) 30 ml DAILYPRN PRN PO CONSTIPATION; Start 02/03/19 at 08:15 Multivitamins (Theragram-M) 1 tab DAILY PO Last administered on 02/07/19at 08:06; Start 02/03/19 at 09:00; Stop 02/07/19 at 09:53; Status DC Nicotine (Nicoderm Cq 21mg) 1 patch DAILY TD Last administered on 02/07/19at 08:06; Start 02/03/19 at 09:00 Quetiapine Fumarate (SEROquel) 50 mg QHS PO Last administered on 02/04/19at 22:31; Start 02/03/19 at 21:00; Stop 02/05/19 at 11:12; Status DC Sertraline HCl (Zoloft) 25 mg QAM PO Last administered on 02/04/19at 08:31; Start 02/03/19 at 09:00; Stop 02/04/19 at 14:14; Status DC Sertraline HCl (Zoloft) 50 mg QAM PO Last administered on 02/08/19at 08:12; Start 02/05/19 at 09:00 Thiamine HCl (Thiamine HCl) 100 mg BID PO Last administered on 02/05/19at 08:14; Start 02/02/19 at 21:00; Stop 02/05/19 at 20:59; Status DC Trazodone HCl (Desyrel) 50 mg QHS PO Last administered on 02/04/19at 22:31; Start 02/04/19 at 21:00; Stop 02/05/19 at 11:26; Status DC Trazodone HCl (Desyrel) 50 mg QHSP PRN PO INSOMNIA; Start 02/03/19 at 08:15; Stop 02/04/19 at 14:14; Status DC Trazodone HCl (Desyrel) 100 mg QHSP PRN PO INSOMNIA Last administered on 02/07/19at 22:20; Start 02/05/19 at 11:30 Allergies Coded Allergies: No Known Allergies (Unverified , 04/24/17) JEANE ECHEVERRIA DO Feb 08, 2019 8:42 am
[2019-02-08 18:00] VITALS: BP 138/77
[2019-02-08] MEDS: traZODone 100 MG TAB PO PRN (22:00)
[2019-02-09 06:56] VITALS: BP 116/54
[2019-02-09] MEDS: NICOTINE 21MG/24HR 1 EA TRANSDERMAL TD SCH (08:13)
[2019-02-09] MEDS: DIVALPROEX 500 MG TAB PO SCH ×2 (08:14→22:29)
[2019-02-09] MEDS: SERTRALINE HCL 50 MG TAB PO SCH (08:14)
[2019-02-09] MEDS: hydrOXYzine 50 MG TAB PO PRN (11:32)
--- NOTE | 2019-02-09 18:18 | MHIPN ---
DATE: 02/09/2019 SUBJECTIVE: I came in within two days after the discharge. I am feeling very depressed and had suicidal thoughts. I was not ready for the discharge. OBJECTIVE: He is a 23-year-old male who presented to the emergency department by himself along with his brother, two days after he was discharged as patient had suicidal thoughts and plans to jump out of the moving vehicle or jump off a bridge. Patient currently is improving. He does not have any suicidal thought but however he is having a lot of anxiety and sometimes he has panic attacks. MENTAL STATUS EXAMINATION: Casually dressed, well groomed, cooperative. Eye contact is normal. Speech is spontaneous and conversant. Mood is depressed, effect is constricted. Thought process is lenient and goal directed. Thought content denied any delusions and denied any suicidal or homicidal ideas. Denied any auditory, visual hallucinations. Cognition alert, oriented to time, place and person. Memory is intact. Insight and judgment is fair to limited. DIAGNOSES: Depressive disorder, unspecified. ADHD. Alcohol and cannabis use disorder. VITAL SIGNS: Temperature 97.5, pulse 57, respiratory rate 16, blood pressure 116/54. MEDICATIONS: Trazodone 100 mg at bedtime as needed, Sertraline 50 mg in the morning, Depakote 500 mg twice a day. PLAN: Continue current medications. Continue individual and group therapy. ESTIMATED LENGTH OF STAY: 3-4 days.
[2019-02-09 18:30] VITALS: BP 136/86
[2019-02-09] MEDS: traZODone 100 MG TAB PO PRN (23:46)
[2019-02-10 07:02] VITALS: BP 127/56
[2019-02-10] MEDS: SERTRALINE HCL 50 MG TAB PO SCH (08:09)
[2019-02-10] MEDS: DIVALPROEX 500 MG TAB PO SCH ×2 (08:09→21:07)
[2019-02-10] MEDS: NICOTINE 21MG/24HR 1 EA TRANSDERMAL TD SCH (08:09)
[2019-02-10] MEDS: ACETAMINOPHEN TAB 650MG DOSE (2X325MG) PO PRN (15:25)
[2019-02-10 18:00] VITALS: BP 130/87
[2019-02-10] MEDS: traZODone 100 MG TAB PO PRN (22:31)
[2019-02-11 06:56] VITALS: BP 127/63
[2019-02-11] MEDS: SERTRALINE HCL 50 MG TAB PO SCH (08:33)
[2019-02-11] MEDS: DIVALPROEX 500 MG TAB PO SCH ×2 (08:33→21:11)
[2019-02-11] MEDS: NICOTINE 21MG/24HR 1 EA TRANSDERMAL TD SCH (08:33)
[2019-02-11] MEDS: ACETAMINOPHEN TAB 650MG DOSE (2X325MG) PO PRN (15:15)
[2019-02-11 18:00] VITALS: BP 134/88
[2019-02-11] MEDS: traZODone 100 MG TAB PO PRN (23:01)
[2019-02-12 06:26] VITALS: BP 112/55
[2019-02-12] MEDS: NICOTINE 21MG/24HR 1 EA TRANSDERMAL TD SCH (08:23)
[2019-02-12] MEDS: DIVALPROEX 500 MG TAB PO SCH ×2 (08:23→21:10)
[2019-02-12] MEDS: SERTRALINE HCL 50 MG TAB PO SCH (08:24)
[2019-02-12] MEDS: IBUPROFEN 600 MG TAB PO PRN (09:12)
--- NOTE | 2019-02-12 14:05 | MHIPN ---
DATE: 02/12/2019 SUBJECTIVE: "I am doing better. My sleep and appetite are good. My medications are working". OBJECTIVE: He is a 23-year-old male who presented to the emergency department and who came along with his brother after two days of discharge. He had suicidal thoughts. He had plans to jump out of the car into moving traffic. The patient is currently improving. MENTAL STATUS EXAMINATION: Casually dressed, well groomed, cooperative. Made good eye contact. Speech spontaneous, goal directed, coherent. Thought content: Denied any suicidal or homicidal ideas. Denied any delusions. Insight and judgment are fair. DIAGNOSES: Depressive disorder, not otherwise specified. Attention deficit hyperactivity disorder (ADHD). Alcohol and cannabis use disorder. VITAL SIGNS: Temperature 97.9, respiratory rate 12, pulse 67, blood pressure 112/55. PLAN: To continue current medications. He is scheduled to be discharged tomorrow with a followup appointment at outpatient rehabilitation. The patient wants to go to AA meetings.
[2019-02-12 18:05] VITALS: BP 139/89
[2019-02-12] MEDS: traZODone 100 MG TAB PO PRN (21:10)
[2019-02-13 06:49] VITALS: BP 114/58
[2019-02-13] MEDS: NICOTINE 21MG/24HR 1 EA TRANSDERMAL TD SCH (08:01)
[2019-02-13] MEDS: SERTRALINE HCL 50 MG TAB PO SCH (08:02)
[2019-02-13] MEDS: IBUPROFEN 600 MG TAB PO PRN (08:02)
[2019-02-13] MEDS: DIVALPROEX 500 MG TAB PO SCH (08:02)
[2019-02-13] MEDS ORDERED: HYDRO50TAB PO ×2 (08:46→08:56)
[2019-02-13] MEDS ORDERED: SERT-155 PO ×2 (08:46→08:56)
--- NOTE | 2019-02-13 16:16 | MHDS ---
DATE OF ADMISSION: 02/03/2019 DATE OF DISCHARGE: 02/13/2019 IDENTIFYING DATA: A 23-year-old male who presented to the emergency department, came along with his brother after 2 days of discharge for suicidal thoughts, had plans to jump out of the car into the moving traffic. For details of history of the present illness, past psychiatric history, substance abuse history, medical history, social history, suicidal history, please refer to the initial evaluation. COURSE IN THE HOSPITAL: Patient initially was depressed. He was placed on sertraline 50 mg once daily, Depakote 500 mg twice a day. He also was placed on individual, group and milieu therapy. Patient made gradual recovery. He started going to the groups. His depression resolved. He started sleeping better. He interacted well with the staff and the peers. Denied any side effect of the medication. He was stable at the time of discharge. MENTAL STATUS EXAMINATION: Casually dressed with good personal hygiene, cooperative, made good eye contact. Mood is euthymic. Affect is appropriate for the mood. Speech rate, rhythm, volume are good. Goal oriented, goal directed. Denied any auditory or visual hallucinations. Denied suicidal or homicidal ideas. He is alert, oriented to time, place, and person. Memory - immediate, remote, recent are good. Insight and judgment are good. VITAL SIGNS: Temperature 97.3, pulse is 64, respiratory rate is 14, blood pressure is 114/58. REVIEW OF SYSTEMS: Denied chest pain, palpitations. Denied abdominal pain, dysuria. Denied dizziness, numbness, tingling. Denied shortness of breath or wheezing. LABORATORY: CBC within normal limits. BMP within normal limits. Toxicology was negative. His discharge medications were sertraline 50 mg once daily, trazodone 100 mg nightly as needed, Depakote 500 mg twice a day. His valproic acid this morning was 68.7, on 02/13/2019. The patient will go home. His grandmother will come to pick him up, and she will monitor his medications. Patient will be followed up at [facility] outpatient clinic.
== END 2019-02-13 13:40 | disposition home or self-care (01) | DRG 754 ==
LOC: M ED 17:34 → M ED INP 02-03 08:08 → M PSY 02-03 08:40
PROVIDERS: ADMIT Psychiatry & Neurology Psychiatry; ATTEND Psychiatry & Neurology Psychiatry
DX: F32.9 Major depressive disorder, single episode, unspecified (principal); R45.851 Suicidal ideations; Z79.899 Other long term (current) drug therapy; F41.9 Anxiety disorder, unspecified

== ENCOUNTER 2019-02-23 23:11 | Emergency (ER) | payer MEDICAID ==
[~2019-02-23] VITALS: Ht 177.8 cm; Wt 44.1 kg
[~2019-02-23 23:11] MED LIST changes: +HYDRO50TAB PO; +SERT-155 PO; +VENTAER INH
[2019-02-24] MEDS ORDERED: NS 1,000 ML IV ONE (01:15)
[2019-02-24] MEDS ORDERED: KETOROLAC 30 MG/ML VIAL (J1885) IV ONE (01:15)
[2019-02-24 01:40] LABS: BASO # 0.1 10^3/uL (0.0-0.2); BASO % 0.5 % (0.0-1.0); EOS % 0.1 % (0.0-3.0); HEMATOCRIT 48.1 % (42.0-52.0); LYMPH # 0.7 10^3/uL (1.5-6.5); LYMPH % 7.3 % (24.0-44.0); MEAN CORPUSCULAR HEMOGLOBIN 30.7 pg (27.0-33.0); MEAN CORPUSCULAR HGB CONC 35.3 g/dl (32.0-36.5); MONO # 0.8 10^3/uL (0.0-0.8); MONO % 8.6 % (0.0-5.0); NEUTROPHILS # 8.1 10^3/uL (1.8-7.7); NEUTROPHILS % 83.1 % (36.0-66.0); PLATELET COUNT, AUTOMATED 128 10^3/uL (150-450); RED BLOOD COUNT 5.53 10^6/uL (4.30-6.10); WHITE BLOOD COUNT 9.8 10^3/uL (4.0-10.0)
[2019-02-24 01:51] LABS: INR 1.1; PROTHROMBIN TIME 14.3 SECONDS (12.1-14.4)
[2019-02-24 01:52] LABS: PARTIAL THROMBOPLASTIN TIME 30.2 SECONDS (25.4-37.6)
[2019-02-24 02:06] LABS: ALBUMIN 3.9 GM/DL (3.2-5.2); ALT/SGPT 21 U/L (12-78); AMYLASE 26 U/L (25-115); BILIRUBIN,DIRECT 0.3 MG/DL (0.0-0.2); BILIRUBIN,TOTAL 1.9 MG/DL (0.2-1.0); BLOOD UREA NITROGEN 10 MG/DL (7-18); CALCIUM LEVEL 8.4 MG/DL (8.5-10.1); CARBON DIOXIDE LEVEL 27 MEQ/L (21-32); CHLORIDE LEVEL 104 MEQ/L (98-107); CK-MB VALUE MASS < 1.0 NG/ML (<3.6); CPK CREATINE PHOSPHOKINASE 80 U/L (39-308); CREATININE FOR GFR 0.89 MG/DL (0.70-1.30); GLOMERULAR FILTRATION RATE > 60.0 (>60); GLUCOSE, FASTING 85 MG/DL (70-100); LIPASE 72 U/L (73-393); POTASSIUM SERUM 3.5 MEQ/L (3.5-5.1); SODIUM LEVEL 139 MEQ/L (136-145); TOTAL PROTEIN 6.9 GM/DL (6.4-8.2); TROPONIN I < 0.02 NG/ML (< 0.10)
[2019-02-24 02:18] LABS: INFLUENZA A AMPLIFICATION NEGATIVE (NEGATIVE); INFLUENZA B AMPLIFICATION NEGATIVE (NEGATIVE)
[2019-02-24 04:00] VITALS: BP 130/65
[2019-02-24 05:27] LABS: MB/CK RELATIVE INDEX 1.25 (< OR =4)
--- NOTE | 2019-02-25 09:09 | REP ---
PA and lateral chest, three views: Comparison is 12/16/2011. The lung martell are clear. The cardiac size is normal. The alayna, mediastinum, and skeletal structures are unremarkable. Impression: Negative PA and lateral chest. Electronically Signed by Monster Jacobs MD 02/24/2019 08:19 A
--- NOTE | 2019-02-25 20:36 | ECGEPIP ---
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
== END 2019-02-24 04:06 | disposition home or self-care (01) ==
LOC: M ED 23:11
DX: R07.89 Other chest pain (principal); R06.02 Shortness of breath; F90.9 Attention-deficit hyperactivity disorder, unspecified type; F33.9 Major depressive disorder, recurrent, unspecified; F41.9 Anxiety disorder, unspecified; Z79.899 Other long term (current) drug therapy; F17.210 Nicotine dependence, cigarettes, uncomplicated
CPT/HCPCS: 36415; 71046; 80048; 80076; 82150; 82550; 82553; 83690; 85025; 85610; 85730; 86140; 87631; 93005; 96361; 96374; 99284; J1885

== ENCOUNTER → 2019-05-15 | Outpatient (CLI) | payer MEDICAID, OTHER ==
[~2019-05-15] MED LIST changes: +TRAZ1TAB10 PO; -TRAZO50TA PO
[2019-05-15 09:53] LABS: ALBUMIN 4.1 GM/DL (3.2-5.2); BILIRUBIN,DIRECT 0.4 MG/DL (0.0-0.2); BILIRUBIN,TOTAL 2.1 MG/DL (0.2-1.0); TOTAL PROTEIN 7.2 GM/DL (6.4-8.2); VALPROIC ACID (DEPAKOTE) 13.5 UG/ML (50.0-100.0)
== END ==
LOC: M LAB 08:30
PROVIDERS: ATTEND Psychiatry & Neurology Psychiatry
DX: Z79.899 Other long term (current) drug therapy (principal)

== ENCOUNTER 2019-05-29 21:23 | Emergency (ER) | payer OTHER ==
[~2019-05-29] VITALS: Ht 177.8 cm; Wt 85.0 kg
[~2019-05-29 21:23] MED LIST changes: +HYDR1TAB33 PO; -HYDRO50TAB PO
[2019-05-29] MEDS ORDERED: NS 1,000 ML IV ONE (21:45)
[2019-05-29 22:06] LABS: BASO % 0.4 % (0.0-1.0); EOS # 0.2 10^3/uL (0.0-0.50); EOS % 2.6 % (0.0-3.0); HEMATOCRIT 45.5 % (42.0-52.0); HEMOGLOBIN 16.3 g/dl (13.5-17.5); LYMPH # 1.7 10^3/uL (1.5-6.5); LYMPH % 21.9 % (24.0-44.0); MEAN CORPUSCULAR HEMOGLOBIN 31.7 pg (27.0-33.0); MEAN CORPUSCULAR HGB CONC 35.8 g/dl (32.0-36.5); MEAN CORPUSCULAR VOLUME 88.5 fl (80.0-96.0); MONO # 0.6 10^3/uL (0.0-0.8); MONO % 7.8 % (0.0-5.0); NEUTROPHILS # 5.2 10^3/uL (1.8-7.7); PLATELET COUNT, AUTOMATED 188 10^3/uL (150-450); RED BLOOD COUNT 5.14 10^6/uL (4.30-6.10); WHITE BLOOD COUNT 7.7 10^3/uL (4.0-10.0)
[2019-05-29 22:30] LABS: AMPHETAMINES LEVEL URINE NEGATIVE (NEGATIVE); BARBITURATES URINE NEGATIVE (NEGATIVE); BENZODIAZEPINES URINE NEGATIVE (NEGATIVE); CANNABINOIDS URINE POSITIVE (NEGATIVE); COCAINE METABOLITE URINE NEGATIVE (NEGATIVE); METHADONE URINE NEGATIVE (NEGATIVE); OPIATES URINE NEGATIVE (NEGATIVE); PHENCYCLIDINE URINE NEGATIVE (NEGATIVE)
[2019-05-29 22:31] LABS: ALBUMIN 4.1 GM/DL (3.2-5.2); ALT/SGPT 23 U/L (12-78); BILIRUBIN,DIRECT 0.2 MG/DL (0.0-0.2); BILIRUBIN,TOTAL 1.1 MG/DL (0.2-1.0); BLOOD UREA NITROGEN 11 MG/DL (7-18); CALCIUM LEVEL 9.2 MG/DL (8.5-10.1); CARBON DIOXIDE LEVEL 34 MEQ/L (21-32); CHLORIDE LEVEL 108 MEQ/L (98-107); CREATININE FOR GFR 0.94 MG/DL (0.70-1.30); ETHYL ALCOHOL (ETHANOL) 0.005 % (0.000-0.010); GLOMERULAR FILTRATION RATE > 60.0 (>60); GLUCOSE, FASTING 91 MG/DL (70-100); POTASSIUM SERUM 3.7 MEQ/L (3.5-5.1); SODIUM LEVEL 143 MEQ/L (136-145); TOTAL PROTEIN 7.1 GM/DL (6.4-8.2)
--- NOTE | 2019-05-29 23:04 | REPVR ---
EXAM: CT Head Without Contrast EXAM DATE/TIME: 05/29/2019 10:41 PM CLINICAL HISTORY: 23 years old, male; Other: Seizure TECHNIQUE: Imaging protocol: Computed tomography images of the head without contrast. Radiation optimization: All CT scans at this facility use at least one of these dose optimization techniques: automated exposure control; mA and/or kV adjustment per patient size (includes targeted exams where dose is matched to clinical indication); or iterative reconstruction. COMPARISON: No relevant prior studies available. FINDINGS: Brain: No CT evidence of acute intracranial hemorrhage or acute territorial infarction. No significant mass effect or midline shift. Basal cisterns patent. Ventricles: Normal in size and configuration. Bones/joints: No acute osseous abnormality. Sinuses: Grossly unremarkable. Mastoid air cells: Grossly unremarkable. Soft tissues: Grossly unremarkable. IMPRESSION: No CT evidence of acute intracranial pathology. Electronically signed by: Rashid Saleh On 05/29/2019 23:03:29 PM
[2019-05-29] MEDS ORDERED: levETIRAcetam INJection 1,000 MG in D5W 100 ML IV ONE (23:15)
[2019-05-29] MEDS ORDERED: KEPP1TAB PO (23:15)
[2019-05-29 23:45] VITALS: BP 125/54
== END 2019-05-30 00:14 | disposition home or self-care (01) ==
LOC: M ED 21:23
DX: G40.309 Generalized idiopathic epilepsy and epileptic syndromes, not intractable, without status epilepticus (principal); F41.9 Anxiety disorder, unspecified; F32.9 Major depressive disorder, single episode, unspecified; Z79.899 Other long term (current) drug therapy
CPT/HCPCS: 70450; 80048; 80076; 80307; 85025; 93041; 94760; 96361; 96365; 99285; G0480; J1953

== ENCOUNTER 2019-10-24 00:08 | Emergency (ER) | payer MEDICAID, OTHER ==
[~2019-10-24] VITALS: Ht 177.8 cm; Wt 89.5 kg
[2019-10-24 00:08] VITALS: BP 153/72
[~2019-10-24 00:08] MED LIST changes: +AMPH1CAP9 PO; -AMPH5CAP PO; +KEPP1TAB PO; -SERT-155 PO; +SERT50TA29 PO
[2019-10-24] MEDS ORDERED: AZITHROMYCIN 250 MG TAB PO ONE (00:45)
[2019-10-24] MEDS ORDERED: LIDOCAINE 1% SDV 5 ML VIAL DILUENT ONE (01:00)
[2019-10-24] MEDS ORDERED: cefTRIAXone SOD 250 MG VIAL (J0696) IM ONE (01:00)
[2019-10-24 02:29] LABS: CHLAMYDIA DNA AMPLIFICATION NEGATIVE (NEGATIVE); GC DNA AMPLIFICATION NEGATIVE (NEGATIVE)
[2019-10-24 14:05] LABS: HEPATITIS B SURFACE ANTIBODY NEGATIVE (POSITIVE); HEPATITIS B SURFACE ANTIGEN NEGATIVE (NEGATIVE); HEPATITIS C VIRUS ABY INDEX 0.2 INDEX (<0.8); HIV 1&2 SCREEN CENTAUR NEGATIVE (NEGATIVE)
== END 2019-10-24 01:22 | disposition home or self-care (01) ==
LOC: M ED 00:08
DX: A57 Chancroid (principal); F90.9 Attention-deficit hyperactivity disorder, unspecified type; Z79.899 Other long term (current) drug therapy
CPT/HCPCS: 86706; 86780; 86803; 87340; 87389; 87661; 96372; 99283; J0696

== ENCOUNTER 2019-11-07 22:38 | Emergency (ER) | payer OTHER ==
[~2019-11-07] VITALS: Ht 180.3 cm; Wt 82.2 kg
[2019-11-07] MEDS ORDERED: GI COCKTAIL 50ML BTL(HYOSCYAMINE/MAALOX/LIDOCAINE VISCOUS)(1:3:1) PO ONE (23:00)
[2019-11-07] MEDS ORDERED: ASPIRIN 81 MG CHEW TABLET PO ONE (23:00)
[2019-11-07] MEDS ORDERED: levETIRAcetam INJection 500 MG in D5W MINI-BAG PLUS 100 ML IV ONE (23:00)
[2019-11-07 23:09] LABS: BASO # 0.1 10^3/uL (0.0-0.2); BASO % 0.9 % (0.0-1.0); EOS # 0.5 10^3/uL (0.0-0.5); EOS % 7.1 % (0.0-3.0); HEMOGLOBIN 16.6 g/dl (13.5-17.5); LYMPH # 2.2 10^3/uL (1.5-5.0); MEAN CORPUSCULAR HEMOGLOBIN 29.3 pg (27.0-33.0); MEAN CORPUSCULAR HGB CONC 33.9 g/dl (32.0-36.5); MEAN CORPUSCULAR VOLUME 86.4 fl (80.0-96.0); MONO # 0.6 10^3/uL (0.0-0.8); MONO % 9.2 % (0.0-5.0); NEUTROPHILS # 3.3 10^3/uL (1.5-8.5); NEUTROPHILS % 49.2 % (36.0-66.0); PLATELET COUNT, AUTOMATED 173 10^3/uL (150-450); RED BLOOD COUNT 5.67 10^6/uL (4.30-6.10); WHITE BLOOD COUNT 6.7 10^3/uL (4.0-10.0)
[2019-11-07 23:21] LABS: INR 1.05; PROTHROMBIN TIME 13.4 SECONDS (11.8-14.0)
[2019-11-07] MEDS ORDERED: KEPP1TAB PO (23:29)
[2019-11-07 23:36] LABS: ALBUMIN 3.9 GM/DL (3.2-5.2); ALT/SGPT 19 U/L (12-78); BILIRUBIN,DIRECT 0.2 MG/DL (0.0-0.2); BLOOD UREA NITROGEN 14 MG/DL (7-18); CALCIUM LEVEL 8.8 MG/DL (8.5-10.1); CARBON DIOXIDE LEVEL 29 MEQ/L (21-32); CHLORIDE LEVEL 107 MEQ/L (98-107); CK-MB VALUE MASS < 1.0 NG/ML (<3.6); CPK CREATINE PHOSPHOKINASE 96 U/L (39-308); GLOMERULAR FILTRATION RATE > 60.0 (>60); GLUCOSE, FASTING 80 MG/DL (70-100); LIPASE 119 U/L (73-393); MB/CK RELATIVE INDEX 1.04 (< OR =4); SODIUM LEVEL 142 MEQ/L (136-145); TOTAL PROTEIN 7.5 GM/DL (6.4-8.2); TROPONIN I < 0.02 NG/ML (< 0.10)
[2019-11-07 23:45] VITALS: BP 117/56
--- NOTE | 2019-11-08 05:50 | ECGEPIP ---
[facility] - ED Test Date: 2019-11-07 Pat Name: WILLIAM MORRISON Department: Room: - Gender: Male [employer] Associate: LINDA : 1995 Requested By: TYLER VIDAL Order Number: [id number] Reading MD: Kristian Loja Measurements Intervals [place] Rate: 0 P: NE: 0 QRS: 0 QRSD: 0 T: 0 QT: 0 QTc: 0 Interpretive Statements NO ELECTRICAL ACTIVITY NO OTHER INTERPRETATION POSSIBLE Electronically Signed on 11-08-2019 5:49:43 EST by Kristian Loja
--- NOTE | 2019-11-08 06:51 | REP ---
Clinical: Chest pain . Comparison: 02/24/2019 . Technique: PA and lateral. Findings: The mediastinum and cardiac silhouette are normal. The lung martell are clear and without acute consolidation, effusion, or pneumothorax. The skeletal structures are intact and normal. Impression: 1. No acute cardiopulmonary process. Electronically Signed by Gilson Noonan MD 11/08/2019 06:43 A
== END 2019-11-07 23:54 | disposition home or self-care (01) ==
LOC: M ED 22:38
DX: K21.9 Gastro-esophageal reflux disease without esophagitis (principal); Z76.0 Encounter for issue of repeat prescription; R56.9 Unspecified convulsions; F17.200 Nicotine dependence, unspecified, uncomplicated; Z79.899 Other long term (current) drug therapy
CPT/HCPCS: 71046; 80048; 80076; 80180; 82550; 82553; 83690; 85025; 85610; 93005; 93041; 94760; 96374; 99284; J1953

== ENCOUNTER 2019-12-28 00:08 | Emergency (ER) | payer OTHER ==
[~2019-12-28] VITALS: Ht 177.8 cm; Wt 83.0 kg
[2019-12-28] MEDS: ONDANSETRON 4MG/2ML VIAL (J2405) IV ONE (01:17)
[2019-12-28 02:06] LABS: BLOOD UREA NITROGEN 7 MG/DL (7-18); CALCIUM LEVEL 8.6 MG/DL (8.5-10.1); CARBON DIOXIDE LEVEL 26 MEQ/L (21-32); CHLORIDE LEVEL 113 MEQ/L (98-107); CREATININE FOR GFR 0.82 MG/DL (0.70-1.30); ETHYL ALCOHOL (ETHANOL) 0.166 % (0.000-0.010); GLOMERULAR FILTRATION RATE > 60.0 (>60); GLUCOSE, FASTING 87 MG/DL (70-100); POTASSIUM SERUM 3.3 MEQ/L (3.5-5.1); SODIUM LEVEL 146 MEQ/L (136-145)
[2019-12-28 05:00] VITALS: BP 112/62
== END 2019-12-28 05:19 | disposition home or self-care (01) ==
LOC: M ED 00:08
DX: F10.129 Alcohol abuse with intoxication, unspecified (principal); G40.909 Epilepsy, unspecified, not intractable, without status epilepticus; Z79.899 Other long term (current) drug therapy
CPT/HCPCS: 80048; 99284; G0480; J2405

== ENCOUNTER 2020-10-24 19:41 | Emergency (ER) | payer OTHER ==
[~2020-10-24] VITALS: Ht 177.8 cm; Wt 89.5 kg
[~2020-10-24 19:41] MED LIST changes: +MIRT-62 PO; -REME15TA PO
[2020-10-24] MEDS ORDERED: SERT-138 (19:49)
[2020-10-24] MEDS ORDERED: TRAZ-189 (19:49)
[2020-10-24 20:35] LABS: HEMATOCRIT 46.7 % (42.0-52.0); HEMOGLOBIN 15.8 g/dl (13.5-17.5); MEAN CORPUSCULAR HGB CONC 33.8 g/dl (32.0-36.5); MEAN CORPUSCULAR VOLUME 85.8 fl (80.0-96.0); PLATELET COUNT, AUTOMATED 201 10^3/uL (150-450); RED BLOOD COUNT 5.44 10^6/uL (4.30-6.10); WHITE BLOOD COUNT 6.5 10^3/uL (4.0-10.0)
[2020-10-24 21:35] LABS: AMPHETAMINES LEVEL URINE NEGATIVE (NEGATIVE); BARBITURATES URINE NEGATIVE (NEGATIVE); BENZODIAZEPINES URINE NEGATIVE (NEGATIVE); CANNABINOIDS URINE NEGATIVE (NEGATIVE); COCAINE METABOLITE URINE NEGATIVE (NEGATIVE); METHADONE URINE NEGATIVE (NEGATIVE); OPIATES URINE NEGATIVE (NEGATIVE); PHENCYCLIDINE URINE NEGATIVE (NEGATIVE)
[2020-10-24 21:38] LABS: BLOOD UREA NITROGEN 10 MG/DL (7-18); CREATININE FOR GFR 0.88 MG/DL (0.70-1.30); GLOMERULAR FILTRATION RATE > 60.0 (>60); GLUCOSE, FASTING 102 MG/DL (70-100)
[2020-10-24 21:39] LABS: ALBUMIN 4.5 GM/DL (3.2-5.2); ALT/SGPT 23 IU/L (0-32); BILIRUBIN,DIRECT 0.2 MG/DL (0.0-0.2); BILIRUBIN,TOTAL 0.9 MG/DL (0.2-1.0); CALCIUM LEVEL 9.7 MG/DL (8.5-10.1); CARBON DIOXIDE LEVEL 32 mmol/L (20-29); CHLORIDE LEVEL 103 MEQ/L (98-107); ETHYL ALCOHOL (ETHANOL) < 0.003 % (0.000-0.010); POTASSIUM SERUM 3.7 MEQ/L (3.5-5.1); SALICYLATE LEVEL < 1.7 MG/DL (5.0-30.0); SODIUM LEVEL 140 MEQ/L (136-145); TOTAL PROTEIN 7.7 GM/DL (6.4-8.2)
[2020-10-24 21:40] LABS: ACETAMINOPHEN LEVEL < 2.0 UG/ML (10.0-30.0); VALPROIC ACID (DEPAKOTE) < 3.0 UG/ML (50.0-100.0)
[2020-10-24 22:51] VITALS: BP 135/86
== END 2020-10-24 22:54 | disposition home or self-care (01) ==
LOC: M ED 19:41
DX: F32.9 Major depressive disorder, single episode, unspecified (principal); R56.9 Unspecified convulsions; F17.200 Nicotine dependence, unspecified, uncomplicated; Z79.899 Other long term (current) drug therapy
CPT/HCPCS: 80048; 80076; 80164; 80180; 80307; 84443; 85027; 99284; G0480

== ENCOUNTER 2020-10-27 19:13 | Emergency (ER) | payer OTHER ==
[~2020-10-27] VITALS: Ht 177.8 cm; Wt 90.6 kg
[~2020-10-27 19:13] MED LIST changes: +SERT-138; +TRAZ-189
[2020-10-27] MEDS ORDERED: ONDANSETRON 4MG/2ML VIAL IV ONE (20:45)
[2020-10-27] MEDS ORDERED: NS 1,000 ML IV ONE (20:45)
[2020-10-27] MEDS ORDERED: PANTOPRAZOLE 40MG VIAL (C9113 PER 1) IV ONE (21:00)
[2020-10-27 21:43] LABS: BASO # 0.1 10^3/uL (0.0-0.2); BASO % 0.7 % (0.0-1.0); EOS # 0.3 10^3/uL (0.0-0.5); EOS % 3.7 % (0.0-3.0); HEMOGLOBIN 16.3 g/dl (13.5-17.5); LYMPH # 1.6 10^3/uL (1.5-5.0); MEAN CORPUSCULAR HEMOGLOBIN 29.2 pg (27.0-33.0); MONO # 0.6 10^3/uL (0.0-0.8); MONO % 8.7 % (0.0-5.0); NEUTROPHILS # 4.7 10^3/uL (1.5-8.5); NEUTROPHILS % 64.6 % (36.0-66.0); PLATELET COUNT, AUTOMATED 211 10^3/uL (150-450); RED BLOOD COUNT 5.58 10^6/uL (4.30-6.10); WHITE BLOOD COUNT 7.2 10^3/uL (4.0-10.0)
[2020-10-27] MEDS: GASTROGRAFIN SOLUTION 30ML PO SCH ×2 (21:44→22:43)
[2020-10-27 21:53] LABS: INR 0.94; PROTHROMBIN TIME 12.8 SECONDS (12.5-14.3)
[2020-10-27 21:54] LABS: PARTIAL THROMBOPLASTIN TIME 28.4 SECONDS (24.2-38.5)
[2020-10-27 22:09] LABS: ALBUMIN 4.3 GM/DL (3.2-5.2); ALT/SGPT 24 U/L (12-78); BILIRUBIN,DIRECT 0.2 MG/DL (0.0-0.2); BILIRUBIN,TOTAL 1.1 MG/DL (0.2-1.0); BLOOD UREA NITROGEN 18 MG/DL (7-18); CALCIUM LEVEL 8.9 MG/DL (8.5-10.1); CARBON DIOXIDE LEVEL 33 MEQ/L (21-32); CHLORIDE LEVEL 108 MEQ/L (98-107); CREATININE FOR GFR 1.08 MG/DL (0.70-1.30); GLOMERULAR FILTRATION RATE > 60.0 (>60); GLUCOSE, FASTING 96 MG/DL (70-100); LIPASE 107 U/L (73-393); POTASSIUM SERUM 4.4 MEQ/L (3.5-5.1); SODIUM LEVEL 144 MEQ/L (136-145); TOTAL PROTEIN 7.5 GM/DL (6.4-8.2)
[2020-10-28] MEDS ORDERED: ISOVUE-370 76% 100ML VIAL As Ordered ONE (00:18)
[2020-10-28 00:21] VITALS: BP 141/69
--- NOTE | 2020-10-28 00:54 | REPVR ---
PROCEDURE INFORMATION: Exam: CT Abdomen And Pelvis With Contrast Exam date and time: 10/27/2020 8:51 PM Age: 25 years old Clinical indication: Abdominal pain; Generalized; Patient HX: PT states blood in vomit; Additional info: Abd pain with blood in vomit TECHNIQUE: Imaging protocol: Computed tomography of the abdomen and pelvis with intravenous contrast. Axial, coronal and sagittal reformatted images were created and reviewed. Radiation optimization: All CT scans at this facility use at least one of these dose optimization techniques: automated exposure control; mA and/or kV adjustment per patient size (includes targeted exams where dose is matched to clinical indication); or iterative reconstruction. Contrast material: ISO; Contrast volume: 100 ml; Contrast route: INTRAVENOUS (IV); COMPARISON: CR Spine. Lumbosacral, complete 04/06/2018 1:05 PM FINDINGS: Liver: Unremarkable. Gallbladder and bile ducts: No radiodense gallstones. No biliary ductal dilatation. Pancreas: Unremarkable. Spleen: Unremarkable. Adrenal glands: Normal. No mass. Kidneys and ureters: No mass. No radiodense calculi. No hydronephrosis. Stomach and bowel: No bowel wall thickening. No obstruction. No pneumatosis. Appendix: Normal. Intraperitoneal space: No free fluid. No organized fluid collection. No free air. Vasculature: Unremarkable. No aneurysm. Lymph nodes: No pathologically enlarged lymph nodes. Urinary bladder: Unremarkable as visualized. Reproductive: Unremarkable. Bones/joints: No acute osseous abnormality. Soft tissues: Unremarkable. IMPRESSION: No CT evidence of acute intra-abdominal or pelvic pathology. Electronically signed by: Rashid Saleh On 10/28/2020 00:54:06 AM
== END 2020-10-28 01:08 | disposition home or self-care (01) ==
LOC: M ED 19:13
DX: R10.9 Unspecified abdominal pain (principal); R11.2 Nausea with vomiting, unspecified; F32.9 Major depressive disorder, single episode, unspecified; R56.9 Unspecified convulsions; F17.200 Nicotine dependence, unspecified, uncomplicated; F12.10 Cannabis abuse, uncomplicated; Z79.899 Other long term (current) drug therapy
CPT/HCPCS: 74177; 80048; 80076; 83690; 85025; 85610; 85730; 86850; 86900; 86901; 96361; 96374; 96375; 99284; C9113; J2405; Q9963; Q9967

== ENCOUNTER → 2023-02-23 | Outpatient (CLI) | payer OTHER ==
[~2023-02-23] MED LIST changes: +QUET50TA4 PO; -QUET5TAB PO
[2023-02-23 11:33] LABS: HEMATOCRIT 47.9 % (42.0-52.0); HEMOGLOBIN 16.6 g/dl (13.5-17.5); MEAN CORPUSCULAR HEMOGLOBIN 30.2 pg (27.0-33.0); MEAN CORPUSCULAR HGB CONC 34.7 g/dl (32.0-36.5); MEAN CORPUSCULAR VOLUME 87.1 fl (80.0-96.0); PLATELET COUNT, AUTOMATED 182 10^3/uL (150-450); WHITE BLOOD COUNT 5.7 10^3/uL (4.0-10.0)
[2023-02-23 12:08] LABS: ALBUMIN 4.2 G/DL (3.2-5.2); BILIRUBIN,DIRECT 0.8 MG/DL (<0.4); BILIRUBIN,TOTAL 2.6 MG/DL (0.3-1.2); TOTAL PROTEIN 7.4 G/DL (5.7-8.2)
[2023-02-23 12:10] LABS: VALPROIC ACID (DEPAKOTE) 6.7 UG/ML (50.0-100.0)
== END ==
LOC: M LAB 10:19
PROVIDERS: ATTEND Psychiatry & Neurology Psychiatry
DX: F63.81 Intermittent explosive disorder (principal); F90.2 Attention-deficit hyperactivity disorder, combined type; F32.89 Other specified depressive episodes; F41.8 Other specified anxiety disorders

== ENCOUNTER → 2023-04-20 | Outpatient (CLI) | payer OTHER | LOC: M LAB 09:55 | PROVIDERS: ATTEND Psychiatry & Neurology Psychiatry | DX: F63.81 Intermittent explosive disorder (principal); F90.2 Attention-deficit hyperactivity disorder, combined type; F32.89 Other specified depressive episodes ==

== ENCOUNTER 2024-03-22 07:31 | Emergency (ER) | payer OTHER ==
[~2024-03-22] VITALS: Ht 180.3 cm; Wt 87.6 kg
[~2024-03-22 07:31] MED LIST changes: -MIRT-62 PO; +MIRT-88 PO; -TRAZ-189; +TRAZ-189 PO
[2024-03-22] MEDS: NS 1,000 ML IV ONE (08:23)
[2024-03-22] MEDS: DIVALPROEX 500MG *ER* TAB PO ONE (08:30)
[2024-03-22 08:32] LABS: BASO % 0.5 % (0.0-1.0); EOS # 0.2 10^3/uL (0.0-0.5); EOS % 3.4 % (0.0-3.0); HEMATOCRIT 50.9 % (42.0-52.0); HEMOGLOBIN 17.5 g/dl (13.5-17.5); LYMPH % 23.5 % (24.0-44.0); MEAN CORPUSCULAR HEMOGLOBIN 29.9 pg (27.0-33.0); MEAN CORPUSCULAR HGB CONC 34.4 g/dl (32.0-36.5); MONO # 0.6 10^3/uL (0.0-0.8); MONO % 14.1 % (2.0-8.0); NEUTROPHILS # 2.5 10^3/uL (1.5-8.5); NEUTROPHILS % 57.8 % (36.0-66.0); PLATELET COUNT, AUTOMATED 160 10^3/uL (150-450); RED BLOOD COUNT 5.85 10^6/uL (4.30-6.10); WHITE BLOOD COUNT 4.4 10^3/uL (4.0-10.0)
[2024-03-22 08:45] LABS: INR 1.12; PARTIAL THROMBOPLASTIN TIME 31.6 SECONDS (24.8-34.2); PROTHROMBIN TIME 14.1 SECONDS (12.5-14.5)
[2024-03-22 08:57] LABS: CK-MB VALUE MASS < 1.0 NG/ML (<3.6)
[2024-03-22 08:58] LABS: VALPROIC ACID (DEPAKOTE) 68.1 UG/ML (50.0-100.0)
[2024-03-22 09:00] LABS: ALBUMIN 4.4 G/DL (3.2-5.2); ALKALINE PHOSPHATASE 54 U/L (46-116); ALT/SGPT 14 U/L (7.0-40); AST/SGOT 10 U/L (<34); BILIRUBIN,DIRECT 0.5 MG/DL (<0.4); BILIRUBIN,TOTAL 1.7 MG/DL (0.3-1.2); BLOOD UREA NITROGEN 18 MG/DL (9-23); CALCIUM LEVEL 9.3 MG/DL (8.5-10.1); CARBON DIOXIDE LEVEL 31 MMOL/L (20-31); CHLORIDE LEVEL 107 MMOL/L (98-107); GLOMERULAR FILTRATION RATE > 60.0 (>60); GLUCOSE, FASTING 77 MG/DL (60-100); POTASSIUM SERUM 4.1 MMOL/L (3.5-5.1); SODIUM LEVEL 144 MMOL/L (136-145); TOTAL PROTEIN 7.3 G/DL (5.7-8.2)
[2024-03-22 09:01] LABS: FREE T4 0.96 NG/DL (0.89-1.76)
[2024-03-22 09:02] LABS: THYROID STIMULATING HORMONE 3.065 uIU/ML (0.55-4.78)
[2024-03-22 09:07] LABS: CPK CREATINE PHOSPHOKINASE 95 U/L (46-171); MB/CK RELATIVE INDEX 1.05 (< OR =4)
[2024-03-22 11:07] LABS: AMPHETAMINES LEVEL URINE NEGATIVE (NEGATIVE); BARBITURATES URINE NEGATIVE (NEGATIVE)
[2024-03-22 11:08] LABS: BENZODIAZEPINES URINE NEGATIVE (NEGATIVE); CANNABINOIDS URINE NEGATIVE (NEGATIVE); COCAINE METABOLITE URINE NEGATIVE (NEGATIVE); METHADONE URINE NEGATIVE (NEGATIVE); OPIATES URINE NEGATIVE (NEGATIVE); PHENCYCLIDINE URINE NEGATIVE (NEGATIVE)
[2024-03-22] MEDS ORDERED: ZOLO100T PO (11:52)
[2024-03-22] MEDS ORDERED: HOME MED LIST COMPLETE! XX SCH (11:55)
[2024-03-22 12:00] VITALS: BP 125/75; TEMP 97; O2SAT 95
== END 2024-03-22 12:13 | disposition home or self-care (01) ==
LOC: EDBD 07:31 → M ED 07:31
DX: R55 Syncope and collapse (principal); S01.01XA Laceration without foreign body of scalp, initial encounter; X58.XXXA Exposure to other specified factors, initial encounter; Y92.9 Unspecified place or not applicable; Y93.9 Activity, unspecified; Y99.9 Unspecified external cause status; R56.9 Unspecified convulsions; F41.9 Anxiety disorder, unspecified; F32.A Depression, unspecified; Z79.899 Other long term (current) drug therapy

== ENCOUNTER 2024-06-08 13:41 | Emergency (ER) | payer OTHER, SELFPAY ==
[~2024-06-08] VITALS: Ht 177.8 cm; Wt 94.0 kg
[~2024-06-08 13:41] MED LIST changes: +ZOLO100T PO
[2024-06-08 14:09] VITALS: BP 139/73; TEMP 98.1; O2SAT 99
== END 2024-06-08 15:36 | disposition left against medical advice (07) ==
LOC: EDBD 13:41 → M ED 13:41
DX: Z53.21 Procedure and treatment not carried out due to patient leaving prior to being seen by health care provider (principal)

== ENCOUNTER → 2024-09-12 | Outpatient (CLI) | payer OTHER ==
[2024-09-12 15:42] LABS: HEMATOCRIT 52.1 % (42.0-52.0); HEMOGLOBIN 17.8 g/dl (13.5-17.5); MEAN CORPUSCULAR HEMOGLOBIN 29.7 pg (27.0-33.0); MEAN CORPUSCULAR HGB CONC 34.2 g/dl (32.0-36.5); PLATELET COUNT, AUTOMATED 223 10^3/uL (150-450); RED BLOOD COUNT 5.99 10^6/uL (4.30-6.10); WHITE BLOOD COUNT 5.9 10^3/uL (4.0-10.0)
[2024-09-12 16:00] LABS: ALBUMIN 4.4 G/DL (3.2-5.2); BILIRUBIN,DIRECT 0.5 MG/DL (<0.4); BILIRUBIN,TOTAL 1.9 MG/DL (0.3-1.2); TOTAL PROTEIN 7.7 G/DL (5.7-8.2)
== END ==
LOC: M PLALAB 12:06
PROVIDERS: ATTEND Psychiatry & Neurology Psychiatry
DX: F63.81 Intermittent explosive disorder (principal); F90.2 Attention-deficit hyperactivity disorder, combined type; F32.89 Other specified depressive episodes; F41.8 Other specified anxiety disorders

== ENCOUNTER → 2024-09-26 | Outpatient (CLI) | payer OTHER ==
[2024-09-26 14:13] LABS: HEMATOCRIT 51.4 % (42.0-52.0); HEMOGLOBIN 17.7 g/dl (13.5-17.5); MEAN CORPUSCULAR HEMOGLOBIN 29.5 pg (27.0-33.0); MEAN CORPUSCULAR HGB CONC 34.4 g/dl (32.0-36.5); MEAN CORPUSCULAR VOLUME 85.5 fl (80.0-96.0); PLATELET COUNT, AUTOMATED 191 10^3/uL (150-450); RED BLOOD COUNT 6.01 10^6/uL (4.30-6.10); WHITE BLOOD COUNT 5.5 10^3/uL (4.0-10.0)
[2024-09-26 14:35] LABS: VALPROIC ACID (DEPAKOTE) 29.1 UG/ML (50.0-100.0)
[2024-09-26 14:39] LABS: ALBUMIN 4.2 G/DL (3.2-5.2); ALKALINE PHOSPHATASE 64 U/L (40-129); ALT/SGPT 19 U/L (7.0-40); AST/SGOT < 8 U/L (<34); BILIRUBIN,DIRECT 0.4 MG/DL (<0.4); BILIRUBIN,TOTAL 1.4 MG/DL (0.3-1.2); TOTAL PROTEIN 7.7 G/DL (5.7-8.2)
== END ==
LOC: M PLALAB 11:46
PROVIDERS: ATTEND Psychiatry & Neurology Psychiatry
DX: F63.81 Intermittent explosive disorder (principal); F90.2 Attention-deficit hyperactivity disorder, combined type; F32.89 Other specified depressive episodes; F41.8 Other specified anxiety disorders

== ENCOUNTER → 2025-02-21 | Outpatient (CLI) | payer OTHER ==
[2025-02-21 14:38] LABS: HEMATOCRIT 50.3 % (42.0-52.0); HEMOGLOBIN 17.1 g/dl (13.5-17.5); MEAN CORPUSCULAR HEMOGLOBIN 29.9 pg (27.0-33.0); MEAN CORPUSCULAR VOLUME 88.1 fl (80.0-96.0); PLATELET COUNT, AUTOMATED 197 10^3/uL (150-450); RED BLOOD COUNT 5.71 10^6/uL (4.30-6.10); WHITE BLOOD COUNT 5.3 10^3/uL (4.0-10.0)
[2025-02-21 15:03] LABS: ALBUMIN 4.1 G/DL (3.2-5.2); BILIRUBIN,DIRECT 0.4 MG/DL (<0.4); BILIRUBIN,TOTAL 1.3 MG/DL (0.3-1.2); TOTAL PROTEIN 7.2 G/DL (5.7-8.2)
== END ==
LOC: M PLALAB 10:37
PROVIDERS: ATTEND Psychiatry & Neurology Psychiatry
DX: F63.81 Intermittent explosive disorder (principal); F90.2 Attention-deficit hyperactivity disorder, combined type; F32.89 Other specified depressive episodes

== ENCOUNTER → 2025-07-30 | Outpatient (CLI) | payer MEDICAID, OTHER ==
[~2025-07-30] MED LIST changes: -IBUP-1022 PO; +IBUP600T42 PO; +PROZ10CA11 PO; -PROZ10CA7 PO
[2025-07-30 11:00] LABS: PLATELET COUNT, AUTOMATED 188 10^3/uL (150-450)
[2025-07-30 11:43] LABS: VALPROIC ACID (DEPAKOTE) < 3.0 UG/ML (50.0-100.0)
[2025-07-30 11:44] LABS: ALT/SGPT 20 U/L (7.0-40); AST/SGOT 19 U/L (<34)
== END ==
LOC: M PLALAB 09:09
PROVIDERS: ATTEND Psychiatry & Neurology Psychiatry
DX: F63.81 Intermittent explosive disorder (principal); F90.2 Attention-deficit hyperactivity disorder, combined type